=== PATIENT | female | born 1945 | race Caucasian/White ===

== ENCOUNTER 2021-03-17 20:54 | Emergency (ER) | payer MEDICARE, SELFPAY ==
--- NOTE | 2021-03-17 21:14 | ED.WOUNDLAC ---
HPI - Wound/Laceration General Stated Complaint: bleeding from leg Time Seen by Provider: 03/17/21 21:14 Source: patient Mode of arrival: ambulatory Limitations: no limitations History of Present Illness HPI narrative: 75-year-old woman comes in today complaining of a bleeding wound on her left anterior thigh that started approximately an hour ago. Patient states that she scratched herself with her fingernail and instigated the bleeding. She called EMS who came and bandaged it. She was worried that they would stop bleeding. She denies bleeding gums, bruising, nosebleeds, or prior similar bleeding. She takes an 81 mg aspirin a day and no other anticoagulants. Onset (ago): hour(s) (1) Extremity Location: Left: thigh Place: home Context: accidental Associated symptoms: none Treatments prior to arrival: bandage Review of Systems Review of Systems: All systems reviewed & are unremarkable except as noted in HPI and below Constitutional: Constitutional: Denies chills and Denies fever(s) Cardiovascular: Cardiovascular: Denies chest pain and Denies radiating jaw, neck or arm pain Respiratory: Respiratory: Denies cough, Denies dyspnea and Denies wheezing Gastrointestinal: Gastrointestinal: Denies abdominal pain, Denies diarrhea, Denies nausea and Denies vomiting Genitourinary: Genitourinary: Denies nocturia and Denies dysuria Musculoskeletal: Musculoskeletal: Denies back pain, Denies arthralgias and Denies joint swelling Integumentary/Breasts: Skin/Breast: Denies pruritus, Denies erythema and Denies rash Hematologic/Lymphatic: Hematologic/Lymphatic: Denies easy bleeding and Denies easy bruising Allergic/Immunologic: Allergic/Immunologic: Denies lip swelling and Denies throat swelling PMFSH Past Medical History Medical History (Updated 03/17/21 @ 21:33 by Junito Fields MD) Hyperlipidemia Hypertension Hypothyroidism Type 2 diabetes mellitus Surgical History Surgical History (Updated 03/17/21 @ 21:27 by Junito Fields MD) History of appendectomy Social History Social History (Updated 03/17/21 @ 21:27 by Junito Fields MD) Smoking status: Never smoker Alcohol intake: never Substance use: never Living arrangements: with family Exam Const: General: no acute distress and alert Orientation/consciousness: patient oriented x3 Eyes: Conjunctivae: conjunctivae normal Pupils: Equal, round and reactive pupils present EOM: EOMs intact bilaterally Resp: Effort & Inspection: normal respiratory effort and not labored Auscultation: clear to auscultation bilaterally, no rales, no rhonchi and no wheezes Cardio: Rate: regular rate Rhythm: regular rhythm Heart sounds: no murmurs Skin: General skin exam: normal color, no jaundice and no pallor Rashes: no rashes Other: varicose veins on the bilateral lower extremities. Small wound on the left anterior mid thigh with no bleeding. Neuro: General: patient oriented x3, moves all extremities, no focal motor deficits and CN's II-XI intact bilaterally Speech: normal speech Gait exam (Neuro): Normal gait present Extrem: General: normal to inspection and no clubbing, cyanosis or edema Psych: Appearance: grossly normal and well kempt Mental Status: mental status grossly normal Affect: normal affect Attitude: cooperative Thought content: Yes Normal thought content present Discharge Plan Discharge Clinical Impression: Abrasion Varicose veins of both lower extremities Qualifiers: Varicose vein complication: asymptomatic Qualified Code(s): I83.93 - Asymptomatic varicose veins of bilateral lower extremities Patient Disposition: Home, Self-Care Condition: Stable Instructions: Abrasion (ED) Additional Instructions: Redress the wound at least twice a day. If the wound begins to bleed again, applied direct pressure with clean gauze for 30-45 minutes. If it continues to bleed after, return to the emergency department. Keep a snug dressing on
[2021-03-17 21:31] VITALS: BP 190/87; PULSE 75; RESP 18; TEMP 37.1; O2SAT 100
[2021-03-17 22:05] VITALS: BP 184/88; PULSE 88; RESP 18; TEMP 36.7; O2SAT 98
== END 2021-03-17 22:13 | disposition home or self-care (01) ==
PROVIDERS: Emergency Provider Emergency Medicine; PCP Hospitalist
DX: I83.93 Asymptomatic varicose veins of bilateral lower extremities (principal); E78.5 Hyperlipidemia, unspecified; I10 Essential (primary) hypertension; E03.9 Hypothyroidism, unspecified; E11.9 Type 2 diabetes mellitus without complications
CPT/HCPCS: 99282

== ENCOUNTER 2022-03-06 09:35 | Outpatient (CLI) | payer MEDICARE, SELFPAY ==
[2022-03-06 10:25] LABS: Hemoglobin A1C 8.4 % (<5.7)
[2022-03-06 10:39] LABS: Alanine Aminotransferase 17 U/L (14-59); Alkaline Phosphatase 60 U/L (46-116); Anion Gap 9 mmol/L (8-16); Aspartate Amino Transferase 15 U/L (15-37); Bilirubin,Total 0.6 mg/dL (0.00-1.00); Blood Urea Nitrogen 28 mg/dL (7-18); Calcium 9.6 mg/dL (8.5-10.1); Carbon Dioxide 27 mmol/L (21-32); Chloride 104 mmol/L (98-108); Cholesterol 147 mg/dL (0-200); Estimated Glomerular Filt Rate 45; Glucose 170 mg/dL (70-99); HDL Direct 62 mg/dL (40-60); LDL Cholesterol Calculated 64 mg/dL (<130); Osmolality Calculated 299 mOsm/kg (285-295); Potassium 4.8 mmol/L (3.5-5.1); Sodium 140 mmol/L (136-145); Total Protein 7.5 g/dL (6.4-8.2); Triglycerides 105 mg/dL (0-150)
[2022-03-06 14:42] LABS: Thyroid Stimulating Hormone 2.26 uIU/mL (0.36-3.74)
[2022-03-10 13:33] LABS: Vitamin D 25 Hydroxy 34 ng/mL (30-100)
== END 2022-03-06 09:36 | disposition home or self-care (01) ==
LOC: CHSLAB 09:38
PROVIDERS: PCP Hospitalist
DX: E78.00 Pure hypercholesterolemia, unspecified (principal); I10 Essential (primary) hypertension; E11.9 Type 2 diabetes mellitus without complications; E55.9 Vitamin D deficiency, unspecified; E03.9 Hypothyroidism, unspecified
CPT/HCPCS: 36415; 80053; 80061; 82306; 83036; 84443

== ENCOUNTER 2022-08-28 09:46 | Outpatient (CLI) | payer MEDICARE, SELFPAY ==
[2022-08-28 10:14] LABS: Hemoglobin A1C 7.9 % (<5.7)
[2022-08-28 10:26] LABS: Alanine Aminotransferase 19 U/L (14-59); Albumin Level 3.7 g/dL (3.4-5.0); Alkaline Phosphatase 59 U/L (46-116); Anion Gap 9 mmol/L (8-16); Aspartate Amino Transferase 14 U/L (15-37); Bilirubin,Total 0.6 mg/dL (0.00-1.00); Blood Urea Nitrogen 31 mg/dL (7-18); Calcium 9.2 mg/dL (8.5-10.1); Carbon Dioxide 26 mmol/L (21-32); Chloride 102 mmol/L (98-108); Cholesterol 161 mg/dL (0-200); Estimated Glomerular Filt Rate 48; Glucose 172 mg/dL (70-99); HDL Direct 55 mg/dL (40-60); LDL Cholesterol Calculated 85 mg/dL (<130); Osmolality Calculated 294 mOsm/kg (285-295); Potassium 4.4 mmol/L (3.5-5.1); Sodium 137 mmol/L (136-145); Triglycerides 107 mg/dL (0-150)
== END 2022-08-28 09:47 | disposition home or self-care (01) ==
LOC: CHSLAB 09:51
PROVIDERS: PCP Hospitalist
DX: I10 Essential (primary) hypertension (principal); E78.5 Hyperlipidemia, unspecified; E11.59 Type 2 diabetes mellitus with other circulatory complications; I15.2 Hypertension secondary to endocrine disorders; E78.00 Pure hypercholesterolemia, unspecified
CPT/HCPCS: 36415; 80053; 80061; 83036

== ENCOUNTER 2022-11-13 09:33 | Outpatient (CLI) | payer MEDICARE, SELFPAY ==
[2022-11-13 10:07] LABS: Creatinine Urine 94.69 mg/dL (40-278); MALB Creatinine Ratio 13.7 mg/g (0-30); Microalbumin Urine Random < 13.0 mg/L
[2022-11-13 10:32] LABS: Alanine Aminotransferase 10 U/L (14-59); Albumin Level 3.6 g/dL (3.4-5.0); Alkaline Phosphatase 70 U/L (46-116); Anion Gap 8 mmol/L (8-16); Aspartate Amino Transferase 13 U/L (15-37); Bilirubin,Total 0.5 mg/dL (0.00-1.00); Blood Urea Nitrogen 31 mg/dL (7-18); Calcium 9.2 mg/dL (8.5-10.1); Carbon Dioxide 30 mmol/L (21-32); Chloride 100 mmol/L (98-108); Estimated Glomerular Filt Rate 36; Glucose 393 mg/dL (70-99); Osmolality Calculated 308 mOsm/kg (285-295); Potassium 4.8 mmol/L (3.5-5.1); Sodium 138 mmol/L (136-145); Total Protein 6.9 g/dL (6.4-8.2)
== END 2022-11-13 09:34 | disposition home or self-care (01) ==
LOC: CHSLAB 09:36
PROVIDERS: PCP Hospitalist; Visit Provider Internal Medicine Endocrinology, Diabetes & Metabolism
DX: E10.65 Type 1 diabetes mellitus with hyperglycemia (principal)
CPT/HCPCS: 36415; 80053; 82043

== ENCOUNTER 2022-12-04 09:57 | Outpatient (CLI) | payer MEDICARE, SELFPAY ==
[2022-12-04 10:43] LABS: Anion Gap 7 mmol/L (8-16); Blood Urea Nitrogen 27 mg/dL (7-18); Calcium 9.6 mg/dL (8.5-10.1); Carbon Dioxide 28 mmol/L (21-32); Chloride 103 mmol/L (98-108); Estimated Glomerular Filt Rate 50; Glucose 143 mg/dL (70-99); Osmolality Calculated 293 mOsm/kg (285-295); Potassium 4.7 mmol/L (3.5-5.1); Sodium 138 mmol/L (136-145)
== END 2022-12-04 09:58 | disposition home or self-care (01) ==
LOC: CHSLAB 10:01
PROVIDERS: PCP Hospitalist; Visit Provider Internal Medicine Endocrinology, Diabetes & Metabolism
DX: E10.65 Type 1 diabetes mellitus with hyperglycemia (principal)
CPT/HCPCS: 36415; 80048

== ENCOUNTER 2023-03-06 09:49 | Outpatient (CLI) | payer MEDICARE, SELFPAY ==
[2023-03-06 10:41] LABS: Alanine Aminotransferase 19 U/L (14-59); Alkaline Phosphatase 59 U/L (46-116); Anion Gap 5 mmol/L (8-16); Aspartate Amino Transferase 15 U/L (15-37); Bilirubin,Total 0.7 mg/dL (0.00-1.00); Blood Urea Nitrogen 30 mg/dL (7-18); Calcium 9.2 mg/dL (8.5-10.1); Carbon Dioxide 32 mmol/L (21-32); Chloride 98 mmol/L (98-108); Cholesterol 163 mg/dL (0-200); Estimated Glomerular Filt Rate 45; Glucose 182 mg/dL (70-99); HDL Direct 64 mg/dL (40-60); LDL Cholesterol Calculated 83 mg/dL (<130); Osmolality Calculated 291 mOsm/kg (285-295); Potassium 4.1 mmol/L (3.5-5.1); Sodium 135 mmol/L (136-145); Total Protein 7.4 g/dL (6.4-8.2); Triglycerides 82 mg/dL (0-150)
== END 2023-03-06 09:50 | disposition home or self-care (01) ==
LOC: CHSLAB 09:53
PROVIDERS: PCP Hospitalist
DX: E78.00 Pure hypercholesterolemia, unspecified (principal); I10 Essential (primary) hypertension
CPT/HCPCS: 36415; 80053; 80061

== ENCOUNTER 2023-04-23 09:40 | Outpatient (CLI) | payer MEDICARE, SELFPAY ==
[2023-04-23 10:40] LABS: Thyroid Stimulating Hormone 2.39 uIU/mL (0.36-3.74)
[2023-04-25 11:38] LABS: Vitamin D 25 Hydroxy 32 ng/mL (30-100)
== END 2023-04-23 09:41 | disposition home or self-care (01) ==
LOC: CHSLAB 09:42
PROVIDERS: PCP Hospitalist; Visit Provider Hospitalist
DX: E03.9 Hypothyroidism, unspecified (principal); E55.9 Vitamin D deficiency, unspecified
CPT/HCPCS: 36415; 82306; 84443

== ENCOUNTER 2023-11-01 09:58 | Outpatient (CLI) | payer MEDICARE, SELFPAY ==
[2023-11-01 10:16] LABS: Basophils Absolute Auto 0.07 K/mm3 (0.00-0.10); Basophils Percent Auto 1.2 % (0.0-1.0); Eosinophils Absolute Auto 0.39 K/mm3 (0.02-0.50); Eosinophils Percent Auto 6.6 % (1.0-6.0); Hematocrit 40.1 % (35.0-42.0); Hemoglobin 13.5 g/dL (11.7-13.8); Immature Granulocyte Absolute 0.02 K/mm3 (0.00-0.00); Immature Granulocyte Percent A 0.3 % (0.0-0.0); Lymphocytes Absolute Auto 1.99 K/mm3 (1.10-4.50); Lymphocytes Percent Auto 33.8 % (18.0-42.0); Mean Corpuscular HGB Conc 33.7 g/dL (32-36); Mean Corpuscular Volume 92.2 fL (78.0-102.0); Mean Platelet Volume 9.9 fl (9.2-11.8); Monocytes Absolute Auto 0.65 K/mm3 (0.10-0.90); Neutrophils Absolute Auto 2.77 K/mm3 (1.70-7.20); Neutrophils Percent Auto 47.1 % (50.0-70.0); Platelet Count Result 276 K/mm3 (150-420); Red Blood Count 4.35 M/mm3 (4.20-5.40); Red Cell Distribution Width 12.8 % (11.6-14.4); White Blood Count 5.9 K/mm3 (4.8-10.8)
[2023-11-01 10:57] LABS: Alanine Aminotransferase 20 U/L (14-59); Albumin Level 4.1 g/dL (3.4-5.0); Alkaline Phosphatase 59 U/L (46-116); Anion Gap 10 mmol/L (4-12); Aspartate Amino Transferase 16 U/L (15-37); Bilirubin,Total 0.6 mg/dL (0.00-1.00); Blood Urea Nitrogen 24 mg/dL (7-18); Calcium 9.7 mg/dL (8.5-10.1); Carbon Dioxide 30 mmol/L (21-32); Chloride 99 mmol/L (98-108); Cholesterol 149 mg/dL (0-200); Estimated Glomerular Filt Rate 48; Glucose 219 mg/dL (70-99); HDL Direct 60 mg/dL (40-60); LDL Cholesterol Calculated 65 mg/dL (<130); Osmolality Calculated 299 mOsm/kg (285-295); Potassium 4.6 mmol/L (3.5-5.1); Sodium 139 mmol/L (136-145); Total Protein 7.3 g/dL (6.4-8.2); Triglycerides 122 mg/dL (0-150)
== END 2023-11-01 09:59 | disposition home or self-care (01) ==
PROVIDERS: PCP Hospitalist; Visit Provider Hospitalist
DX: E10.69 Type 1 diabetes mellitus with other specified complication (principal); E78.2 Mixed hyperlipidemia; I51.2 Rupture of papillary muscle, not elsewhere classified; E10.59 Type 1 diabetes mellitus with other circulatory complications
CPT/HCPCS: 36415; 80053; 80061; 85025

== ENCOUNTER 2023-11-28 10:06 | Outpatient (CLI) | payer MEDICARE, SELFPAY ==
[2023-11-28 10:27] LABS: Creatinine Urine 95.73 mg/dL (40-278); MALB Creatinine Ratio 79.1 mg/g (0-30); Microalbumin Urine Random 75.8 mg/L
== END 2023-11-28 10:07 | disposition home or self-care (01) ==
LOC: CHSLAB 10:08
PROVIDERS: PCP Hospitalist; Visit Provider Nurse Practitioner Family
DX: E10.65 Type 1 diabetes mellitus with hyperglycemia (principal)
CPT/HCPCS: 82043

== ENCOUNTER 2024-06-10 10:50 | Outpatient (CLI) | payer MEDICARE, SELFPAY ==
[2024-06-10 11:07] LABS: Basophils Percent Auto 1.1 % (0.0-1.0); Eosinophils Percent Auto 4.2 % (1.0-6.0); Hematocrit 41.4 % (35.0-42.0); Hemoglobin 13.6 g/dL (11.7-13.8); Immature Granulocyte Absolute 0.02 K/mm3 (0.00-0.00); Immature Granulocyte Percent A 0.2 % (0.0-0.0); Lymphocytes Percent Auto 25.5 % (18.0-42.0); Mean Corpuscular HGB Conc 32.9 g/dL (32-36); Mean Corpuscular Hemoglobin 31.3 pg (27.0-31.0); Mean Corpuscular Volume 95.2 fL (78.0-102.0); Mean Platelet Volume 9.3 fl (9.2-11.8); Monocytes Percent Auto 9.6 % (2.0-11.0); Neutrophils Percent Auto 59.4 % (50.0-70.0); Platelet Count Result 310 K/mm3 (150-420); Red Blood Count 4.35 M/mm3 (4.20-5.40); White Blood Count 9.4 K/mm3 (4.8-10.8)
[2024-06-10 11:38] LABS: Alanine Aminotransferase 8 U/L (14-59); Albumin Level 4.1 g/dL (3.4-5.0); Alkaline Phosphatase 71 U/L (46-116); Anion Gap 9 mmol/L (4-12); Aspartate Amino Transferase 14 U/L (15-37); Bilirubin,Total 0.5 mg/dL (0.00-1.00); Blood Urea Nitrogen 32 mg/dL (7-18); Calcium 9.8 mg/dL (8.5-10.1); Carbon Dioxide 30 mmol/L (21-32); Chloride 102 mmol/L (98-108); Estimated Glomerular Filt Rate 43; Glucose 114 mg/dL (70-99); Osmolality Calculated 299 mOsm/kg (285-295); Potassium 4.2 mmol/L (3.5-5.1); Sodium 141 mmol/L (136-145); Total Protein 7.5 g/dL (6.4-8.2)
[2024-06-10 11:54] LABS: Thyroid Stimulating Hormone Reflex 2.06 u/IU/mL (0.36-3.74)
--- OUTSIDE RECORDS SUMMARY | 2024-06-10 12:30 | XMS_ITS | Clinical Summary ---
Author Organization [facility] Care Team Providers Care Machine Stripper Name Role Phone María Gusman MD Primary Care Pro vider Allergies No known active allergies Medications cholecalciferol (VITAMIN D-3) 25 mcg (1,000 unit) tablet Take 1 tablet (1,000 Units total) by mouth daily Active aspirin 81 mg enteric coated tablet Take 1 tablet (81 mg total) by mouth daily Active blood-glucose transmitter (Dexcom G6 Transmitter) deviceIndications: Type 1 diabetes mellitus with other specified complication (HCC) Use to check blood sugar continuously 1 Device 1 08/31/19 21 Active glucagon (Baqsimi) 3 mg/actuation spray,non-aerosol Administer 1 spray into one nostril as needed (for hypoglycemia) 2 each 3 11/08/19 22 Active triamcinolone (KENALOG) 0.1 % ointmentIndication s:Dermatitis Apply topically 2 (two) times a day as needed for irritation or rash Do not use daily for longer than 2 weeks 15 g 09/05/19 23 Active Dexcom G7 Animal Husbandry Technician miscIndications:Ty pe 1 diabetes mellitus with hyperglycemia (HCC) USE TO CHECK BG DIRECTED 1 each 11/10/19 23 Active insulin NPH (HumuLIN N) 100 unit/mL vial for injectionIndicatio ns:Type 1 diabetes mellitus with other specified complication (HCC) TAKE 20 UNITS IN THE MORNING AND 8 UNITS IN THE EVENING 45 mL 3 12/30/19 24 Active hydroCHLOROthiazid e (HYDRODIURIL) 25 mg tabletIndications: Hypertension associated with diabetes (HCC) TAKE 1 TABLET BY MOUTH DAILY 100 tablet 2 01/06/20 24 Active Dexcom G7 Sensor deviceIndications: Type 1 diabetes mellitus with hyperglycemia (HCC) Change sensor every 10 days 9 each 3 01/09/20 24 Active levothyroxine (SYNTHROID) 75 mcg tablet TAKE 1 TABLET BY MOUTH DAILY 100 tablet 01/14/20 24 Active carvediloL (COREG) 12.5 mg tablet TAKE 1 TABLET BY MOUTH TWICE DAILY 200 tablet 2 02/04/20 24 Active lisinopriL (PRINIVIL,ZESTRIL) 20 mg tablet TAKE 1 TABLET BY MOUTH TWICE DAILY 200 tablet 2 02/04/20 24 Active amLODIPine (NORVASC) 10 mg tablet TAKE 1 TABLET BY MOUTH DAILY 100 tablet 2 02/19/20 24 Active insulin regular (HumuLIN R) 100 unit/mL vial for injectionIndicatio ns:Type 1 diabetes mellitus with other specified complication (HCC) Inject 4-10 Units under the skin 2 (two) times a day before breakfast and dinner INJECT SUBCUTANEOUSLY 10 UNITS WITH BREAKFAST AND 4 UNITS WITH DINNER 20 mL 3 04/08/19 25 026 Active atorvastatin (LIPITOR) 10 mg tabletIndications: 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 A1c uncontrolled but stable at 8.0%. reviewed Dexcom download w/Verónica at time of appt; will make below changes: -increase evening NPH from 8 to 10 units. Please pay attention to blood sugars; may need to cut back on the NPH if going too low. -increase morning humulin Regular from 10 to 12 units Current medications: NPH 20 units with breakfast, 10 units with dinner Humulin R 12 units with breakfast, 4 units with dinner For sugars less than 120 at bedtime: have snack UTD on DM eye exam (11/21/23 +background retinlpathy Sharon Medel). UTD on labs. Discussed with Valentina I Gille: Strive for regular exercise (30min most days) and diet (get at least 4-5 servings of fruit and veggies daily, avoid processed foods, increase lean protein intake and decrease carb portions as well as fruit juices, regular soda & desserts). Watch carbs and simple sugars. Check the blood sugar: Dexcom. Check the feet daily for skin breakdown and infection. Assessment & Plan (11/20/2023 2:14 PM CDT): Chronic problem. A1c uncontrolled. Saida from 7.3% 08/22/23 to now 8.0%. -increase morning NPH back to 20 units. Please pay attention to blood sugars; may need to cut back on the NPH if going too low. Current medications: NPH 20 units with breakfast, 8 units with dinner Humulin R 10 units with breakfast, 4 units with dinner For sugars less than 120 at bedtime: have snack UTD on DM eye exam 01/14/23. Seen q6 mos; letter sent to get copy of spring 2023 eye exam. Will update MA/Cr today.Verified that she uses [facility]. Aware to check results/results letter in [facility]. Will contact by phone if needed. Discussed with Valentina Cordoba: Strive for regular exercise (30min most days) and diet (get at least 4-5 servings of fruit and veggies daily, avoid processed foods, increase lean protein intake and decrease carb portions as well as fruit juices, regular soda & desserts). Watch carbs and simple sugars. Check the blood sugar: Dexcom. Check the feet daily for skin breakdown and infection. Assessment & Plan (08/22/2023 2:51 PM CDT): Chronic, with hypo and hyperglycemia Insulin regimen adjusted : In the morning, before breakfast : NPH insulin , 15 Regular insulin, 8 units Before dinner : NPH, 10 units Regular insulin 4 units Assessment & Plan (03/21/2023 3:56 PM PLASTIC BLOCK BOILER RELINER): Hba1c was Lab Results Component Value Date HGBA1C 8.0 03/21/2023 today, indicating inadequate DM control Goal Hba1c under 7 and blood glucose level in the 120-160 range was explained Low carb diet and daily aerobic and /or resistant exercise were advised Prevention and treatment of hyypoglcyemia were discussed with the patient Blood glucose monitoring : start CGM with DEXCOM We provided the patient with the Dexcom G7 reader and placed the 1st sensor. Prescription will be sent Adjustment to medications: Continue current regimen with insulin N and R Assessment & Plan (11/08/2022 1:50 PM CDT): Hba1c was Lab Results Component Value Date HGBA1C 7.4 11/08/2022 today, indicating adequate DM control with hypoglycemia Goal Hba1c and blood glucose explained Diet and exercise were advised Prevention and treatment of hyypoglcyemia were discussed with the patient Blood glucose monitoring : will start CGM with FSL Adjustment to medications: Adjust insulin as follows : In the morning, before breakfast: NPH insulin , 20 Regular insulin, 5 units Before dinner : NPH, 10 units Regular insulin 4 units For sugars under 120 at bedtime, have a bedtime snack Assessment & Plan (03/06/2022 1:03 PM PLASTIC BLOCK BOILER RELINER): Lab Results Component Value Date HGBA1C 8.2 02/08/2022 Following with endocrine, reviewed note Continue current insulin dosing Assessment & Plan (02/08/2022 2:21 PM PLASTIC BLOCK BOILER RELINER): Hba1c was Lab Results Component Value Date HGBA1C 8.2 02/08/2022 today, indicating suboptimal DM control Goal Hba1c and blood glucose explained Diet and exercise were advised Prevention and treatment of hyypoglcyemia were discussed with the patient Blood glucose monitoring : ac ( pt not interested in CGM ) Adjustment to medications: Continue current regimen with N and R insulin Assessment & Plan (11/21/2021 1:34 PM CDT): Lab Results Component Value Date HGBA1C 8.5 11/07/2021 Following with endocrine, reviewed note Continue 25nph & 5 units regular in AM & 15 nph & 5 regular in PM, with 7 units of regular if blood sugar>200 Assessment & Plan (11/07/2021 4:30 PM CDT): Hba1c was Lab Results Component Value Date HGBA1C 8.5 11/07/2021 today, indicating inadequate DM control Goal Hba1c and blood glucose explained Diet and exercise were advised Prevention and treatment of hyypoglcyemia were discussed with the patient Blood glucose monitoring : will start CGM with [employer]. Prescription was sent Adjustment to medications: NPH insulin , 25 units and Regular insulin, 5 units in the morning, before breakfast For sugars over 200, take 7 units of Regular insulin NPH, 15 units and Regular insulin, 5 units before dinner For sugars over 200, take 7 units of regular insulin If your sugars at bedtime, are under 120, have a bedtime snack. Patient is very reluctant to any changes and the kind of insulin or the doses Encounter for annual wellnes s visit (AWV) in Medicare patient 02/03/2020 Assessment & Plan (03/12/2024 11:24 AM PLASTIC BLOCK BOILER RELINER): Reviewed PM & PHQ Screening PHQ-2 Total Score (If total score is 3 or more points, staff should administer the PHQ-9): 1 Hearing/vision screening reviewed, referrals placed as needed Fall risk reviewed Reviewed medications and supplements Specialists: cardiology, endocrine no evidence of cognitive impairment HCM: orders placed as needed Assessment & Plan (09/12/2023 2:09 PM CDT): Reviewed PMH & Reviewed medications and supplements HCM: orders placed as needed Assessment & Plan (03/07/2023 1:13 PM PLASTIC BLOCK BOILER RELINER): Reviewed [facility] & PHQ Screening PHQ-2 Total Score (If total score is 3 or more points, staff should administer the PHQ-9): 0 Hearing/vision screening reviewed, referrals placed as needed Fall risk reviewed Reviewed medications and supplements Specialists: cardiology, endocrine no evidence of cognitive impairment HCM: orders placed as needed Assessment & Plan (09/04/2022 1:20 PM CDT): Reviewed PM & Reviewed medications and supplements HCM: orders placed as needed Assessment & Plan (03/06/2022 1:05 PM PLASTIC BLOCK BOILER RELINER): Reviewed [facility] & PHQ Screening PHQ-2 Total Score (If total score is 3 or more points, staff should administer the PHQ-9): 0 PHQ-9 Total Score: 0 Hearing/vision screening reviewed, referrals placed as needed Fall risk reviewed Reviewed medications and supplements Specialists: cardiology, endocrine no evidence of cognitive impairment HCM: orders placed as needed Assessment & Plan (02/20/2021 9:22 AM PLASTIC BLOCK BOILER RELINER): Reviewed PMH & PHQ Screening PHQ-2 Total Score (If total score is 3 or more points, staff should administer the PHQ-9): 0 Hearing/vision screening reviewed, referrals placed as needed Fall risk reviewed Reviewed medications and supplements Specialists: cardiology no evidence of cognitive impairment HCM: orders placed as needed Assessment & Plan (02/03/2020 11:12 AM PLASTIC BLOCK BOILER RELINER): Former smoker <20 pack year history, quit >25y ago PAP: no longer indicated Mammo UTD 09/2019 Dexa ordered Cologuard UTD 11/2018 BP : see below PHQ Screening PHQ-2 Total Score (If total score is 3 or more points, staff should administer the PHQ-9): 0 PHQ-9 Total Score: 0 Body mass index is 30.34 kg/m . Discussed diet and exercise Due for hep C screening: previously negative Flu UTD PCV 23 today Tdap and shingrex at pharmacy Hypertension associated with type 1 diabetes ariana litus Assessment & Plan (03/12/2024 11:58 AM PLASTIC BLOCK BOILER RELINER): Continue 20mg lisinopril twice a day, 25mg hydrochlorothiazide, 10mg amlodipine, 12.5mg coreg & 5mg terazosin Assessment & Plan (03/02/2024 11:36 AM PLASTIC BLOCK BOILER RELINER): Chronic problem. Controlled on current carvedilol 12.5mg bid, lisinopril 20mg daily, amlodipine 10mg daily, HCTZ 25mg daily Assessment & Plan (11/20/2023 1:49 PM CDT): Chronic problem. Controlled on current carvedilol 12.5mg bid, lisinopril 20mg daily, amlodipine 10mg daily, HCTZ 25mg daily Assessment & Plan (09/12/2023 2:09 PM CDT): BP controlled Continue 20mg lisinopril twice a day, 25mg hydrochlorothiazide, 10mg amlodipine, 12.5mg coreg & 2mg terazosin Assessment & Plan (03/07/2023 1:16 PM PLASTIC BLOCK BOILER RELINER): BP controlled Continue 20mg lisinopril twice a day, 25mg hydrochlorothiazide, 10mg amlodipine, 12.5mg coreg & 2mg terazosin Assessment & Plan (09/04/2022 1:19 PM CDT): BP at goal Continue 20mg lisinopril twice a day, 25mg hydrochlorothiazide, 10mg amlodipine, 12.5mg coreg & 2mg terazosin Assessment & Plan (03/06/2022 1:04 PM PLASTIC BLOCK BOILER RELINER): BP at goal Continue 20mg lisinopril twice a day, 25mg hydrochlorothiazide, 10mg amlodipine and 50mg metoprolol XL Assessment & Plan (11/21/2021 1:31 PM CDT): BP at goal Continue 20mg lisinopril twice a day, 25mg hydrochlorothiazide, 10mg amlodipine and 50mg metoprolol XL Assessment & Plan (08/21/2021 9:49 AM CDT): BP at goal Continue 20mg lisinopril twice a day, 25mg hydrochlorothiazide, 10mg amlodipine and 50mg metoprolol XL Assessment & Plan (05/23/2021 9:22 AM PLASTIC BLOCK BOILER RELINER): BP at goal Continue 20mg lisinopril twice a day, 25mg hydrochlorothiazide, 10mg amlodipine and 50mg metoprolol XL Assessment & Plan (02/20/2021 9:23 AM PLASTIC BLOCK BOILER RELINER): BP at goal Continue 20mg lisinopril twice a day, 25mg hydrochlorothiazide, 10mg amlodipine and 50mg metoprolol XL Assessment & Plan (12/01/2020 12:56 PM CDT): BP at goal Continue 20mg lisinopril twice a day, 25mg hydrochlorothiazide, 10mg amlodipine and 50mg metoprolol XL Assessment & Plan (08/01/2020 12:38 PM CDT): BP at goal Reviewed labs and cardiology notes Continue 20mg lisinopril twice a day, 25mg hydrochlorothiazide, 10mg amlodipine and 50mg metoprolol XL Assessment & Plan (07/04/2020 10:40 AM CDT): BP at goal On 20mg lisinopril twice a day, 25mg hydrochlorothiazide, 10mg amlodipine and 50mg metoprolol XL Assessment & Plan (05/19/2020 10:45 AM PLASTIC BLOCK BOILER RELINER): BP at goal On 20mg lisinopril twice a day, 25mg hydrochlorothiazide, 10mg amlodipine and 50mg metoprolol XL Assessment & Plan (02/03/2020 11:03 AM PLASTIC BLOCK BOILER RELINER): BP initially above goal On 20mg lisinopril, 25mg hydrochlorothiazide, 10mg amlodipine and 50mg metoprolol XL Patient has follow up with cardiology later today Assessment & Plan (01/04/2020 11:25 AM CDT): BP initially 140/64, improved to 134/60 on repeat Continue 20mg lisinopril, 25mg hydrochlorothiazide, 10mg amlodipine and 50mg metoprolol XL Follow up 1 month, if remains elevated above goal will need to increase meds Assessment & Plan (12/04/2019 6:36 AM CDT): BP initially 176/80, improved to 140/74 on repeat Blood pressure improving 2 weeks after starting new medications, would give additional 2 weeks to note full benefit, may need to increase further if not to goal Continue 20mg lisinopril, 25mg hydrochlorothiazide, 5mg amlodipine and 25mg metoprolol Assessment & Plan (10/01/2019 11:23 AM CDT): BP 180/80 despite additional medications. Asymptomatic Home cuff 230/80 in office, home readings 148-170/60-70's. May be at goal at home, but unclear given cuff accuracy Referral to cardiology for ambulatory monitoring Continue medications Assessment & Plan (09/18/2019 11:07 AM CDT): BP 192/88 initially, 170/80 on repeat Increase hydrochlorothiazide to 25mg and follow up 2 weeks for recheck with cuff Assessment & Plan (09/04/2019 11:07 AM CDT): Uncontrolled BP 180/72 today, above goal Home BP ranges from 66-205/32-95 with wrist cuff Discussed wrist cuff less accurate and given persistently elevated blood pressure in clinic with some additionally significantly elevated pressures at home recommend adding additional agent, patient agreeable Assessment & Plan (08/21/2019 10:53 AM CDT): BP 160/89 today, above goal Continue 20mg lisinopril Type 1 diabetes mellitus with other specified co mplication Assessment & Plan (03/12/2024 11:24 AM PLASTIC BLOCK BOILER RELINER): Lab Results Component Value Date HGBA1C 8.0 03/02/2024 Following with endocrine Continue current insulin dosing Assessment & Plan (09/12/2023 2:09 PM CDT): Lab Results Component Value Date HGBA1C 7.3 08/22/2023 Following with endocrine Continue current insulin dosing Assessment & Plan (03/07/2023 1:14 PM PLASTIC BLOCK BOILER RELINER): Lab Results Component Value Date HGBA1C 7.4 11/08/2022 Following with endocrine Continue current insulin dosing Assessment & Plan (09/04/2022 1:08 PM CDT): a1c 7.9 Following with endocrine Continue current insulin dosing Assessment & Plan (08/21/2021 9:56 AM CDT): Lab Results Component Value Date HGBA1C 9.3 (H) 07/25/2021 Above goal, recommend referral to endocrine Continue 25nph & 3 units regular in AM & 14 nph & 6 regular in PM Assessment & Plan (05/23/2021 9:22 AM PLASTIC BLOCK BOILER RELINER): Check a1c Continue 25nph & 3 units regular in AM & 14 nph & 6 regular in PM Assessment & Plan (02/20/2021 9:33 AM PLASTIC BLOCK BOILER RELINER): Lab Results Component Value Date HGBA1C 6.9 (H) 01/26/2021 Continue 25nph & 3 units regular in AM & 14 nph & 6 regular in PM Ok to decrease testing frequency, but stressed importance of checking if having symptoms of hypoglycemia Assessment & Plan (12/01/2020 12:56 PM CDT): Uncontrolled Continue 24 nph, decrease regular to 4 units in AM & continue 14 nph & 7 regular in PM Assessment & Plan (08/01/2020 12:37 PM CDT): Home blood sugar at goal, although a1c still uncontrolled. Continue 25 nph & 15 regular in AM & 11 nph/11 regular in PM Check blood sugar 2 hours after breakfast and lunch and send me values Assessment & Plan (07/04/2020 11:02 AM CDT): DM Care Plan: Meds: Insulin: 25 units of NPH & 15 units of regular insulin before breakfast. 11 units of NPH & 11 units of regular insulin before dinner. Lisinopril - continue Statin - continue Eye Exam: yearly Foot Exam: 10/10 monofilament, 2+ pedal pulses 08/21/2019 BP: At goal, on ACEi. Continue meds Smoking - none Influenza - 12/30/2019 Pneumococcal - 13 02/03/2020, 23 due 01/2021 A1C - Hemoglobin A1c % (%) Date Value 12/17/2019 8.9 (H) Hemoglobin A1C, POC (no units) Date Value 05/19/2020 8.2 08/21/2019 6.8 Lipids: On statin, checked yearly Urine Microalbumin - on ACEi - no recheck Assessment & Plan (05/19/2020 1:04 PM PLASTIC BLOCK BOILER RELINER): A1c improved to 8.2, but still above goal. Given fasting blood sugar and 2h after dinner at goal advise patient to check 2 hours after breakfast, 2 hours after lunch and at bedtime and follow up via portal in 4 days so we can adjust medications. Working on getting continuous glucose monitor approved. DM Care Plan: Meds: Increase to 18 units AM & 16 units PM NPH and regular insulin Lisinopril - continue Statin - continue Eye Exam: yearly Foot Exam: 10/10 monofilament, 2+ pedal pulses 08/21/2019 BP: At goal, on ACEi. Continue meds Smoking - none Influenza - 12/30/2019 Pneumococcal - 13 02/03/2020, 23 due 01/2021 A1C - Hemoglobin A1c % (%) Date Value 12/17/2019 8.9 (H) Hemoglobin A1C, POC (no units) Date Value 08/21/2019 6.8 Lipids: On statin, checked yearly Urine Microalbumin - on ACEi - no recheck Assessment & Plan (02/03/2020 11:02 AM PLASTIC BLOCK BOILER RELINER): Uncontrolled. Now having borderline hypoglycemia at night. Decrease evening insulin dose. Will order CGM and place referral to dietitian. DM Care Plan: Meds: Continue 17 units AM & decrease to 16 units PM NPH and regular insulin Lisinopril - continue Statin - continue Eye Exam: yearly Foot Exam: 10/10 monofilament, 2+ pedal pulses 08/21/2019 BP: Above goal, see below, on ACEi. Continue meds Smoking - none Influenza - 12/30/2019 Pneumococcal - 13 today, 23 1 year A1C - Hemoglobin A1c % (%) Date Value 12/17/2019 8.9 (H) Hemoglobin A1C, POC (no units) Date Value 08/21/2019 6.8 Lipids: On statin, checked yearly Urine Microalbumin - on ACEi - no recheck Assessment & Plan (01/04/2020 11:26 AM CDT): Uncontrolled DM Care Plan: Meds: Increase to 17 units AM & 17 units PM NPH and regular insulin Lisinopril - continue Statin - continue Eye Exam: yearly, request records Foot Exam: 10/10 monofilament, 2+ pedal pulses 08/21/2019 BP: Above goal, see below, on ACEi. Continue meds Smoking - none Influenza - 12/30/2019 Pneumococcal - patient going to get at pharmacy A1C - Hemoglobin A1c % (%) Date Value 12/17/2019 8.9 (H) Hemoglobin A1C, POC (no units) Date Value 08/21/2019 6.8 Lipids: On statin, checked yearly Urine Microalbumin - on ACEi - no recheck Assessment & Plan (09/04/2019 11:06 AM CDT): Patient requesting refills of insulin, informed sent to pharmacy at last visit. Sugars at goal, continue current dosing Assessment & Plan (08/21/2019 1:02 PM CDT): DM Care Plan: Meds: Continue 15 units AM & 17 units PM NPH and regular insulin Lisinopril - continue Statin - continue Eye Exam: yearly, new referral placed Foot Exam: 10/10 monofilament, 2+ pedal pulses 08/21/2019 BP: Above goal, see below, on ACEi. Continue meds Smoking - none Influenza - this fall Pneumococcal - give at next visit A1C - Hemoglobin A1C, POC (no units) Date Value 08/21/2019 6.8 Lipids: On statin, checked yearly, per patient just checked, request records Urine Microalbumin - on ACEi - no recheck Acquired hypothyroidism Assessment & Plan (03/12/2024 11:26 AM PLASTIC BLOCK BOILER RELINER): TSH 2.Apr, controlled Continue 75mcg levothyroxine Assessment & Plan (03/02/2024 11:36 AM PLASTIC BLOCK BOILER RELINER): Chronic problem. Managed by PCP. Clinically & biochemically euthyroid at this time. Currently taking levothyroxine 75 mcg daily. Aware to take 1st thing in morning, 30-60 minutes before food/drink/other medications. Assessment & Plan (11/20/2023 1:50 PM CDT): Chronic problem. Managed by PCP. Clinically & biochemically euthyroid at this time. Currently taking levothyroxine 75 mcg daily. Aware to take 1st thing in morning, 30-60 minutes before food/drink/other medications. Assessment & Plan (09/12/2023 2:09 PM CDT): Lab Results Component Value Date TSH 0.40 02/22/2021 controlled Continue 75mcg levothyroxine Assessment & Plan (03/07/2023 1:17 PM PLASTIC BLOCK BOILER RELINER): tsh 2.26 03/06/22 Continue 75mcg levothyroxine Assessment & Plan (09/04/2022 1:09 PM CDT): tsh 2.26 03/06/22 Continue 75mcg levothyroxine Assessment & Plan (03/06/2022 1:04 PM PLASTIC BLOCK BOILER RELINER): Lab Results Component Value Date TSH 0.40 02/22/2021 Continue 75mcg levothyroxine Assessment & Plan (11/21/2021 1:31 PM CDT): Lab Results Component Value Date TSH 0.40 02/22/2021 Continue 75mcg levothyroxine Assessment & Plan (08/21/2021 9:56 AM CDT): Lab Results Component Value Date TSH 0.40 02/22/2021 Continue 75mcg levothyroxine Assessment & Plan (05/23/2021 9:24 AM PLASTIC BLOCK BOILER RELINER): Lab Results Component Value Date TSH 0.40 02/22/2021 Continue 75mcg levothyroxine Assessment & Plan (12/01/2020 1:58 PM CDT): Lab Results Component Value Date TSH 0.590 12/17/2019 Continue 75mcg levothyroxine Recheck tsh at next appt Assessment & Plan (07/04/2020 10:40 AM CDT): Lab Results Component Value Date TSH 0.590 12/17/2019 Continue 75mcg levothyroxine Assessment & Plan (05/19/2020 10:45 AM PLASTIC BLOCK BOILER RELINER): Lab Results Component Value Date TSH 0.590 12/17/2019 Continue 75mcg levothyroxine Assessment & Plan (02/03/2020 11:00 AM PLASTIC BLOCK BOILER RELINER): Lab Results Component Value Date TSH 0.590 12/17/2019 Continue 75mcg levothyroxine Assessment & Plan (01/04/2020 11:27 AM CDT): Lab Results Component Value Date TSH 0.590 12/17/2019 Continue 75mcg levothyroxine Assessment & Plan (09/18/2019 11:08 AM CDT): TSH within normal limits 05/2019, repeat yearly COntinue 75mcg levothyroxine Assessment & Plan (08/21/2019 12:59 PM CDT): Per patient recent TSH 3 months ago within normal limits, request records Continue 75mcg levothyroxine Vitamin D deficiency Assessment & Plan (03/12/2024 11:26 AM PLASTIC BLOCK BOILER RELINER): Continue supplementation Assessment & Plan (09/12/2023 2:09 PM CDT): Continue supplementation Assessment & Plan (09/04/2022 1:10 PM CDT): Continue supplementation Assessment & Plan (11/21/2021 1:31 PM CDT): Continue supplementation Assessment & Plan (12/01/2020 1:59 PM CDT): Continue supplementation Assessment & Plan (05/19/2020 10:45 AM PLASTIC BLOCK BOILER RELINER): On 1,000 international units daily Assessment & Plan (02/03/2020 11:00 AM PLASTIC BLOCK BOILER RELINER): Last level 70 Recommend decreasing supplementation to 1,000 international units daily Assessment & Plan (12/04/2019 6:31 AM CDT): On 50,000 international units weekly Recheck level with next labs Assessment & Plan (09/18/2019 11:07 AM CDT): Last level <30 in 05/2019 Patient notes not taking weekly, encouraged to find a way to remind herself Check with next diabetes mellitus labs Assessment & Plan (08/21/2019 1:06 PM CDT): Request records Repeat level with next labs Mixed diabetic hyperlipidemi a associated with type 1 diabetes mellitus Assessment & Plan (03/12/2024 11:25 AM PLASTIC BLOCK BOILER RELINER): Continue statin Assessment & Plan (03/02/2024 11:36 AM PLASTIC BLOCK BOILER RELINER): Chronic problem. Currently taking Atorvastatin 10mg. Last lipid panel: 11/01/23 LDL=65, MP=341. Assessment & Plan (11/20/2023 1:49 PM CDT): Chronic problem. Currently taking Atorvastatin 10mg. Last lipid panel: 03/06/23 LDL=83, TG=82. Assessment & Plan (09/12/2023 2:09 PM CDT): Continue statin Assessment & Plan (08/22/2023 2:52 PM CDT): Chronic, stable. Continue Atorvastatin Assessment & Plan (03/21/2023 3:54 PM PLASTIC BLOCK BOILER RELINER): Chronic, stable Continue statin therapy with atorvastatin 10 mg daily Assessment & Plan (03/07/2023 1:16 PM PLASTIC BLOCK BOILER RELINER): Continue statin Assessment & Plan (09/04/2022 1:08 PM CDT): Continue statin Assessment & Plan (03/06/2022 1:03 PM PLASTIC BLOCK BOILER RELINER): Continue statin Assessment & Plan (11/21/2021 1:31 PM CDT): Continue statin Assessment & Plan (08/21/2021 9:51 AM CDT): Continue 10mg atorvastatin Assessment & Plan (05/23/2021 9:22 AM PLASTIC BLOCK BOILER RELINER): Continue 10mg atorvastatin Assessment & Plan (02/20/2021 9:23 AM PLASTIC BLOCK BOILER RELINER): Continue 10mg atorvastatin Assessment & Plan (12/01/2020 1:59 PM CDT): Continue 10mg atorvastatin Assessment & Plan (08/01/2020 12:38 PM CDT): Reviewed labs and cardiology note Continue 10mg atorvastatin Assessment & Plan (07/04/2020 10:40 AM CDT): On 10mg atorvastatin Assessment & Plan (05/19/2020 10:45 AM PLASTIC BLOCK BOILER RELINER): On 10mg atorvastatin Lipids checked 12/17/19 Assessment & Plan (02/03/2020 11:00 AM PLASTIC BLOCK BOILER RELINER): On 10mg atorvastatin Lipids checked 12/16 Assessment & Plan (01/04/2020 6:54 AM CDT): On 10mg atorvastatin Lipids checked 12/16 Assessment & Plan (09/18/2019 11:08 AM CDT): Had lipids checked 05/2019 scanned into chart On 10mg atorvastatin Assessment & Plan (08/21/2019 1:06 PM CDT): On statin Resolved Problems Problem Noted Date Diagnosed Date Resolved Date Hypoglycemia due to type 1 diabetes mellitus 2 03/07/2023 Assessment & Plan (11/07/2021 4:31 PM CDT): Prevention and treatment of hypoglycemia were discussed Pt has glucagon emergency kit at home and family knows how to use it. New prescription for Baqsimi was also sent Class 1 obesity due to exces s calories with serious comorbidity and body mass index (BMI) of 32.0 to 32.9 in adult 08/21/2019 09/12/2023 Assessment & Plan (02/20/2021 9:23 AM PLASTIC BLOCK BOILER RELINER): BMI Follow-up includes: nutrition counseling. Assessment & Plan (02/03/2020 11:00 AM PLASTIC BLOCK BOILER RELINER): BMI Follow-up includes: nutrition counseling. Assessment & Plan (01/04/2020 6:53 AM CDT): BMI Follow-up includes: nutrition counseling and exercise counseling. Assessment & Plan (12/04/2019 6:29 AM CDT): BMI Follow-up includes: nutrition counseling and exercise counseling. Assessment & Plan (09/18/2019 3:35 PM CDT): BMI Follow-up includes: nutrition counseling. Assessment & Plan (08/21/2019 11:52 AM CDT): BMI Follow-up includes: nutrition counseling. Encounters Date Type Department Care Team Description 04/14/2024 Telephone [facility] Diabetes and Endocrinology [address] [place] [phone] Harmony Camarena, CANDY COOKER HELPER Reschedule 03/18/2024 Telephone [facility] Primary Care at [address] [phone] María Gusman MD Medical Question/Miscellaneous 03/12/2024 11:15 AM PLASTIC BLOCK BOILER RELINER Office Visit [facility] Primary Care at [address] [phone] María Gusman MD Encounter for annual wellness visit (AWV) in Medicare patient (Primary Dx); Encounter for screening for other viral diseases; 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, unspecified laterality (HCC); Hypertension associated with type 1 diabetes mellitus (HCC); 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); Acquired hypothyroidism; Vitamin D deficiency; Impacted cerumen of left ear from Last 3 Months Immunizations Immunization Administration Dates Next Due Influenza, Quad, Adjuvantate d, Intramuscular 01/21/2023 Influenza, Quadrivalent, Hig h Dose, Preservative Free, Intrr 12/20/2021,12/28/2020,12/30/2019 Influenza, Trivalent, High D ose, Split, Preservative Free, Intramuscular 01/02/2024 Influenza, Unspecified 01/08/2022,01/11/2021 Meningococcal ACWY, Unspecified 06/22/2020,05/25 Moderna SARS-CoV-2 Monovalen t Vaccination (12+ YRS) 01/29/2021 Pneumococcal Conjugate PCV 13 02/03/2020 Pneumococcal Conjugate Pcv20 02/27/2022 Pneumococcal Polysaccharide PPV23 03/15/2021 RSV, Bivalent, Protein Subun it Rsvpref, Diluent (Abrysvo) 01/24/2024 ZOSTER Recombinant 01/11/2021,08/30/2020 Surgical History Surgery Date Site/Laterality Comments APPENDECTOMY HYSTERECTOMY BREAST BIOPSY 04/01/1983 - 03/31/1984 Left benign surgical bx, no visible scar- pt think outer breast Medical History Medical History Date Comments Depression Hypertension Arthritis Thyroid disease Vitamin D deficiency Hyperlipidemia Diabetes mellitus (HCC) Family History Medical History Relation Name Comments Emphysema Father Breast cancer Mother [facility] Paternal Half-Sister Relation Name Status Comments Father Mother [facility] Paternal Half-Sister Social History Tobacco Use Types Packs/Day Years Used Date Smoking Tobacco: Former Cigarettes 0.4 34 0 04/01/1972 - 1992 Smokeless Tobacco: Never Tobacco Cessation:Counseling Given: Not Answered Alcohol Use Standard Drinks/Week Comments Not Currently 0 (1 standard drink = 0.6 oz pur e alcohol) AUDIT-C Answer Date Recorded Frequency of Alcohol Consumption Not on file 03/12/2024 Q2: How many drinks containi ng alcohol do you have on a typical day when you are drinking? Patient does not drink Frequency of Binge Drinking Not on file 03/01 PHQ-2 Answer Date Recorded PHQ-2 Total Score (If total score is 3 or more points, staff should administer the PHQ-9) 1 03/12/2024 Comments No Sex and Gender Information Value Date Recorded Sex Assigned at Not on file Legal Sex Female 10:49 AM CDT Gender Identity Female 12/27/2019 8:13 AM CDT Sexual Orientation Choose not to disclose 2019 8:13 AM CDT Obstetrics History Para Term AB IAB SAB Ectopic Multiple Livin g Live Births 0 0 0 0 0 0 0 0 0 0 0 Last Filed Vital Signs Vital Sign Reading Time Taken Comments Blood Pressure 136/82 03/12/2024 11:14 AM PLASTIC BLOCK BOILER RELINER Pulse 70 03/12/2024 11:14 AM PLASTIC BLOCK BOILER RELINER Temperature 36.6 C (97.8 F) 03/12/2024 11:14 AM PLASTIC BLOCK BOILER RELINER Respiratory Rate 18 03/12/2024 11:14 AM PLASTIC BLOCK BOILER RELINER Oxygen Saturation 98% 03/12/2024 11:14 AM PLASTIC BLOCK BOILER RELINER Inhaled Oxygen Concentration - - Weight 78.7 kg (173 lb 9.6 oz) 03/12/2024 11:14 AM PLASTIC BLOCK BOILER RELINER Height 167.6 cm (5' 6 ) 03/12/2024 11:14 AM PLASTIC BLOCK BOILER RELINER Body Mass Index 28.02 03/12/2024 11:14 AM PLASTIC BLOCK BOILER RELINER Plan of Treatment Health Maintenance Due Date Last Done Comments DTaP/Tdap/Td Vaccine (1 - Tdap) 1956 Hepatitis B Screening 06[birth year]02/1963 TSH Level 04/23/2024 04/23/2023, 01/31, 12/17/2019 Covid-19 Vaccine (2023-2 5 season) 2024 01/02/2024, 01/21/2023, 12/25/2021, Additional history exists Hemoglobin A1C 08/31/2024 03/02/2024, 10/31, 08/22/2023, Additional history exists Osteoporosis Screening-Bone Density Scan 10/30/2024 10/30/2022, 07/04/2020 Lipid Panel 10/31/2024 11/01/2023, 120 08/2022, 03/06/2023, Additional history exists eGFR 10/31/2024 11/01/2023, 09/0 07/2022, 11/13/2022, Additional history exists Dilated Eye Exam 11/20/2024 11/21/2023, , 01/08/2022, Additional history exists Albumin Creatinine Ratio, Urine 11/27/2024 11/28/2023, 11/13/2022, 05/24/2021 Foot Exam 03/02/2025 03/02/2024, 09/2022, 11/21/2021, Additional history exists Depression Screening 03/12/2025 03/12/2024, 03/21/2023, 03/07/2023, Additional history exists Fall Risk Assessment 03/12/2025 03/12/2024, 03/21/2023, 03/07/2023, Additional history exists Well Visit 65+ 03/12/2025 03/12/2024, 08/30, 03/07/2023, Additional history exists Colon Cancer Screening-DNA Stool Discontinued 01/15/20 19, 01/14/2019 Colon Cancer Screening-FIT Discontinued 01/14/2019, Colon Cancer Screening-FOBT Discontinued 01/14/2019, 1 Colorectal Cancer Screening Discontinued Hepatitis C Screening Completed 12/17/2019 Zoster Vaccine Completed 01/11/2021, 08/30/2020 Pneumococcal vaccine 65+ Completed 022, 03/15/2021, 02/03/2020 Breast Cancer Screening-Mammogram Discontinued 024, 10/16/2019 Influenza Vaccine Completed 01/02/2024, , 01/08/2022, Additional history exists Colon Cancer Screening-CT Colonography Discontinued Colon Cancer Screening-Colonoscopy Discontinued Colon Cancer Screening-Sigmoidoscopy Discontinued Procedures Procedure Name Priority Date/Time Associated Diagnosis Comments POCT HEMOGLOBIN A1C Routine 03/02/2024 11:27 AM PLASTIC BLOCK BOILER RELINER Type 1 diabetes mellitus with hyperglycemia (HCC) ALBUMIN CREATININE RATIO, URINE Routine 11/28/2023 10:13 AM CDT Type 1 diabetes mellitus with hyperglycemia (HCC) HM DIABETES EYE EXAM Routine 11/21/2023 7:59 AM CDT COMPREHENSIVE METABOLIC PANEL Routine 11/01/2023 10:11 AM CDT LIPID PANEL Routine 11/01/2023 10:11 AM CDT SCREENING MAMMOGRAM BILATERAL W SHANT Schedule Routine, Read Routine (OP Routine) 10/18/2023 10:40 AM CDT Screening mammogram, encounter for TSH Routine 04/23/2023 DEXA AXIAL SKELETON BONE DENSITY 1 OR MORE SITES Schedule Routine, Read Routine (OP Routine) 10/30/2022 1:38 PM CDT Post-menopausal HEPATITIS C ANTIBODY Routine 12/17/2019 8:52 AM CDT Need for hepatitis C screening test STOOL DNA COLOGUARD Routine 01/14/2019 from Last 3 Months or Most Recently Relevant to Health Maintenance Results * (ABNORMAL) POCT hemoglobin A1c (03/02/2024 11:27 AM PLASTIC BLOCK BOILER RELINER) Hemoglobin A1C, POC 8.0 4.0 - 5.6 % Blood 03/02/2024 11:2 7 AM PLASTIC BLOCK BOILER RELINER us Harmony Camarena NP POINT OF CARE TEST ORDERA BLES Final Result * (ABNORMAL) Albumin Creatinine Ratio, Urine (11/28/2023 10:13 AM CDT) SCRIBED Creatinine, Urine 95.73 40 - 278 EXTERNAL LAB SCRIBED Microalbumin 75.8 NA - NA EXTERNAL LAB SCRIBED Microalb/Creat Ratio 79.1(A) 0 - 30 EXTERNAL LAB Urine 11/28/2023 10:1 3 AM CDT us Harmony Camarena CANDY COOKER HELPER LAB URINE ORDERABLES Janneth l Result EXTERNAL LAB * (ABNORMAL) DIABETES EYE EXAM (11/21/2023 7:59 AM CDT) us Historical Provider HEALTH MAINTENANCE Final Result * (ABNORMAL) Lipid panel (11/01/2023 10:11 AM CDT) SCRIBED Cholesterol, Total 149 0 - 200 EXTERNAL LAB SCRIBED HDL 60 40 - 60 EXTERNAL LAB SCRIBED LDL 65 <130 - NA EXTERNAL LAB SCRIBED Triglycerides 122 0 - 150 EXTERNAL LAB Blood 11/01/2023 10:1 1 AM CDT Historical Provider LAB BLOOD ORDERABLES Edit ed Result - Final EXTERNAL LAB * (ABNORMAL) Comprehensive metabolic panel (11/01/2023 10:11 AM CDT) SCRIBED Sodium 139 136 - 145 mmol/L EXTERNAL LAB SCRIBED Potassium 4.6 3.5 - 5.1 mmol/L EXTERNAL LAB SCRIBED Chloride 99 98 - 108 mmol/L EXTERNAL LAB SCRIBED Carbon Dioxide 30 21 - 32 mmol/L EXTERNAL LAB SCRIBED Anion Gap 10 4 - 12 mmol/L EXTERNAL LAB SCRIBED Urea Nitrogen (BUN) 24(A) 7 - 18 mg/dl EXTERNAL LAB SCRIBED Creatinine 1.10(A) 0.55 - 1.02 mg/dl EXTERNAL LAB SCRIBED Glucose 219(A) 70 - 99 mg/dl EXTERNAL LAB SCRIBED Calcium 9.7 8.5 - 10.1 mg/dl EXTERNAL LAB SCRIBED Bilirubin 0.6 0.00 - 1.00 mg/dl EXTERNAL LAB SCRIBED Plasma Protein 7.3 6.4 - 8.2 g/dl EXTERNAL LAB SCRIBED Albumin 4.1 3.5 - 5.0 g/dl EXTERNAL LAB SCRIBED Alkaline Phosphatase 59 46 - 116 Units/L EXTERNAL LAB SCRIBED Alanine Transaminase (ALT) 20 14 - 59 Units/L EXTERNAL LAB SCRIBED Aspartate Transaminase (AST) 16 15 - 37 Units/L EXTERNAL LAB SCRIBED eGFR in NonAfrican Bulgarian 48 >=60 - NA EXTERNAL LAB Blood 11/01/2023 10:1 1 AM CDT Historical Provider LAB BLOOD ORDERABLES Edit ed Result - Final EXTERNAL LAB * Screening Mammogram Bilateral W Shant (10/18/2023 10:40 AM CDT) Anatomical Region Laterality Modality Breast Bilateral Mammography 10/18/2023 3:52 PM CDT Impressions 10/18/2023 3:52 PM CDT There is no mammographic evidence of malignancy. A 1 year screening mammogram is recommended. BI-RADS: 1 - Negative. The patient has been or will be contacted. The patient will be entered into a reminder system with a target due date of 1 year for her next mammogram. Electronically signed by: Ginna Ngo M.D. Narrative 10/18/2023 3:52 PM CDT EXAMINATION: SCREENING MAMMOGRAM BILATERAL W SHANT ORDERING HEALTHCARE PROVIDER: SELF SCREENING MAMMOGRAM HISTORY: Routine screening mammography. COMPARISON: 10/16/2019 TECHNIQUE: CC and MLO views of the bilateral breasts were obtained with digital technique using breast tomosynthesis with C view. Computer aided detection was utilized. FINDINGS: DENSITY: There are scattered fibroglandular elements in the bilateral breasts. BREASTS: There are no suspicious masses, suspicious calcifications, or other suspicious findings in either breast. There has been no suspicious interval change. us Self Screening Mammogram IMG MAMMO PROCEDURES Fi nal Result * TSH (04/23/2023) Scribed TSH 2.39 0.36 - 3.74 mcU/mL EXTERNAL LAB Blood Historical Provider MD LAB BLOOD ORDERABLES Janneth l Result EXTERNAL LAB * Dexa Axial Skeleton Bone Density 1 or 2 Site (10/30/2022 1:38 PM CDT) Anatomical Region Laterality Modality Body N/A Mammography 10/31/2022 8:31 AM CDT Narrative 10/31/2022 8:32 AM CDT EXAM DESCRIPTION: DEXA AXIAL SKELETON BONE DENSITY 1 OR MORE SITES REASON FOR STUDY: 77 y/o year old F with given history of: Postmenopausal status. Patient takes vitamin-D. 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 LEFT HIP: Total BMD is 0.852 g/cm2 T-score is -0.7 This is an 8.5% decrease in comparison to prior exam which is statistically significant. Femoral neck BMD is 0.696 g/cm2 T-score is -1.4 FRAX: 10 year risk for a major osteoporotic fracture is 12 %, 10 year risk for a hip fracture is 2.4 % IMPRESSION: Low bone mass REFERENCE: Bone mineral density: Normal (T-score above or = -1.0) Low bone mass (T-score between -1.0 and -2.5) replaces the previously used term osteopenia Osteoporosis (T-score = or below -2.5) Medical evaluation for secondary causes of low bone mineral density may be appropriate. FRAX is a World Health Organization validated fracture risk assessment tool that calculates a person's 10 year probability of a major osteoporosis related fracture and hip fracture. According to the National Osteoporosis Foundation guidelines, postmenopausal women and men age 50 or older with low bone mass and a 10 year probability of a major osteoporosis related fracture = or greater than 20% or a 10 year probability of a hip fracture = or greater than 3% should be considered for treatment. For further information, including treatment recommendations, please refer to the 2019 ISCD Official Positions (http://www.iscd.org) and the NOF's Clinician's Guide to Prevention and Treatment of Osteoporosis (http://www.nof.org/professionals/clinical-guidelines) THIS IS AN ELECTRONICALLY VERIFIED FINAL REPORT 10/31/2022 8:32 AM - Electronically signed by Areli Menendez M.D. TW: Report ID: [id number] Reading Location: [id number] Procedure Note Areli Menendez MD - 10/31/2022 EXAM DESCRIPTION: DEXA AXIAL SKELETON BONE DENSITY 1 OR MORE SITES REASON FOR STUDY: 77 y/o year old F with given history of:Postmenopausal status. Patient takes vitamin-D. Curriculum Specialist/Model: [employer] A (S/N [id number]) CLINICAL INFORMATION: Current height: 65 inches Maximum height: 66.5 inches Weight: 186.4 pounds Risk factors: Non COMPARISON: 07/04/2020 FINDINGS: AP LUMBAR SPINE L1-L4: Total BMD is 1.054 g/cm2 T-score is 0.1 This is a 4% increase in comparison to prior exam which is statistically significant. LEFT HIP: Total BMD is 0.852 g/cm2 T-score is -0.7 This is an 8.5% decrease in comparison to prior exam which isstatistically significant. Femoral neck BMD is 0.696 g/cm2 T-score is -1.4 FRAX: 10 year risk for a major osteoporotic fracture is 12 %, 10 year risk for ahip fracture is 2.4 % IMPRESSION: Low bone mass REFERENCE: Bone mineral density: Normal (T-score above or = -1.0) Low bone mass (T-score between -1.0 and -2.5) replaces thepreviously used term osteopenia Osteoporosis (T-score = or below -2.5) Medical evaluation for secondary causes of low bone mineral density may be appropriate. FRAX is a World Health Organization validated fracture risk assessmenttool that calculates a person's 10 year probability of a major osteoporosisrelated fracture and hip fracture. According to the National OsteoporosisFoundation guidelines, postmenopausal women and men age 50 or older with low bonemass and a 10 year probability of a major osteoporosis related fracture = or greater than 20% or a 10 year probability of a hip fracture = or greaterthan 3% should be considered for treatment. For further information, including treatment recommendations, please referto the 2019 ISCD Official Positions (http://www.iscd.org) and the NOF's Clinician's Guide to Prevention and Treatment of Osteoporosis (http://www.nof.org/professionals/clinical-guidelines) THIS IS AN ELECTRONICALLY VERIFIED FINAL REPORT 10/31/2022 8:32 AM - Electronically signed by Areli Menendez M.D. TW: TW Report ID: [id number] Reading Location: [id number] María Gusman MD IMG DXA PROCEDURE S Final Result * Hepatitis C antibody (12/17/2019 8:52 AM CDT) Hep C Ab NONREACT NONREACTIVE [facility] Comment: Siemens CentaurXP using KARLA (chemiluminescent immunoassay) technology. NONREACTIVE: Antibodies to Hepatitis C not detected. This does not exclude early acute Hepatitis C infection, possibility of exposure to Hepatitis C, antibodies below detection limit, or to lack of antibody reactivity to the antigen used in this assay. EQUIVOCAL: Antibodies to Hepatitis C may or may not be present. Sample to be confirmed by real-time PCR method. REACTIVE: Antibodies to Hepatitis C detected.Sample to be confirmed by real-time PCR method. Blood specimen (specimen) 12/17/2019 8:52 AM CDT 12/17/2019 9:02 AM CDT Narrative Resulting Agency Comment CLI María Gusman MD LAB MICROBIOLOGY - GENERAL ORDERABLES Final Result [address] [phone] * Stool DNA - Cologuard (01/14/2019) Scribed Stool DNA - Cologuard Negative [facility] Stool 01/14/2019 [place] Provider LAB BODY FLUIDS AND STOOL S ORDERABLES Final Result [facility] from Last 3 Months or Most Recently Relevant to Health Maintenance Insurance [facility] MDCR HMO REF MEDICARE SOLUTIONS Advance Directives For more information, please contact: [phone] Documents on File Type Date Recorded Patient Sensory Scientist Expl anation Power of Metal Drawer 03/06/2024 2:05 PM Maxin e Durable [email or web address].pdf ADVANCE DIRECTIVE 03/06/2024 2:05 PM Maxin e Living Will2.pdf Power of Metal Drawer 03/06/2024 2:02 PM Jeni Lal [facility] POA2.pdf Power of Metal Drawer 03/06/2024 2:00 PM Jeannine Almodovar [facility] Healthcare [email or web address].pdf Healthcare Agents on File Name Relationship Healthcare Agent Relationshi p Communication Jeannine Hemvarghese Daughter Health Care Agent Jeni Lal Daughter [facility] Health Ca re Agent Care Teams Machine Stripper Relationship Specialty Start Date End Date María Gusman MD PCP - General Family Medicine 06/29/19
--- OUTSIDE RECORDS SUMMARY | 2024-06-10 12:30 | XMS_ITS | Referral Summary ---
Author Organization [facility] Care Team Providers Care Coloring Checker Name Role Phone María Gusman MD Primary Care Pro vider Encounters Date Type Department Care Team Description 04/14/2024 Telephone [facility] Diabetes and Endocrinology [address] [place] [phone] Harmony Camarena DESULPHURING OPERATOR Reschedule 03/18/2024 Telephone [facility] Primary Care at [address] [phone] María Gusman MD Medical Question/Miscellaneous 03/12/2024 11:15 AM SPORTS TEAM MANAGER Office Visit [facility] Primary Care at [address] [phone] María Gusman MD Encounter for [...] of left ear from Last 3 Months Allergies No known active allergies Medications cholecalciferol [...] 15 g 09/05/19 23 Active Dexcom G7 Mortgage Loan Closer miscIndications:Ty pe 1 diabetes mellitus with hyperglycemia [...] 11/2021 Assessment & Plan (03/02/2024 12:06 PM SPORTS TEAM MANAGER): Chronic problem. A1c uncontrolled but stable at [...] Medel). UTD on labs. Discussed with Valentina Cordoba: Strive for regular [...] Will update MA/Cr today.Verified that she uses mychart. Aware to check results/results letter in [employer]. Will contact by phone if needed. Discussed [...] units Assessment & Plan (03/21/2023 3:56 PM SPORTS TEAM MANAGER): Hba1c was Lab Results Component Value Date [...] snack Assessment & Plan (03/06/2022 1:03 PM SPORTS TEAM MANAGER): Lab Results Component Value Date HGBA1C 8.2 02/08/2022 Following with endocrine, reviewed note Continue current insulin dosing Assessment & Plan (02/08/2022 2:21 PM SPORTS TEAM MANAGER): Hba1c was Lab Results Component Value Date [...] 02/03/2020 Assessment & Plan (03/12/2024 11:24 AM SPORTS TEAM MANAGER): Reviewed PMH & PHQ Screening PHQ-2 Total Score (If total score is 3 or more points, staff should administer the PHQ-9): 1 Hearing/vision screening reviewed, referrals placed as needed Fall risk reviewed Reviewed medications and supplements Specialists: cardiology, endocrine no evidence of cognitive impairment HCM: orders placed as needed Assessment & Plan (09/12/2023 2:09 PM CDT): Reviewed PM & Reviewed medications and supplements HCM: orders placed as needed Assessment & Plan (03/07/2023 1:13 PM SPORTS TEAM MANAGER): Reviewed [facility] PHQ Screening PHQ-2 Total Score (If total score is 3 or more points, staff should administer the PHQ-9): 0 Hearing/vision screening reviewed, referrals placed as needed Fall risk reviewed Reviewed medications and supplements Specialists: cardiology, endocrine no evidence of cognitive impairment HCM: orders placed as needed Assessment & Plan (09/04/2022 1:20 PM CDT): Reviewed [facility] & Reviewed medications and supplements HCM: orders placed as needed Assessment & Plan (03/06/2022 1:05 PM SPORTS TEAM MANAGER): Reviewed [facility] PHQ Screening PHQ-2 Total Score (If total score is 3 or more points, staff should administer the PHQ-9): 0 PHQ-9 Total Score: 0 Hearing/vision screening reviewed, referrals placed as needed Fall risk reviewed Reviewed medications and supplements Specialists: cardiology, endocrine no evidence of cognitive impairment HCM: orders placed as needed Assessment & Plan (02/20/2021 9:22 AM SPORTS TEAM MANAGER): Reviewed [facility] PHQ Screening PHQ-2 Total Score (If total score is 3 or more points, staff should administer the PHQ-9): 0 Hearing/vision screening reviewed, referrals placed as needed Fall risk reviewed Reviewed medications and supplements Specialists: cardiology no evidence of cognitive impairment HCM: orders placed as needed Assessment & Plan (02/03/2020 11:12 AM SPORTS TEAM MANAGER): Former smoker <20 pack year history, quit [...] Hypertension associated with type 1 diabetes ariana juani Assessment & Plan (03/12/2024 11:58 AM SPORTS TEAM MANAGER): Continue 20mg lisinopril twice a day, 25mg hydrochlorothiazide, 10mg amlodipine, 12.5mg coreg & 5mg terazosin Assessment & Plan (03/02/2024 11:36 AM SPORTS TEAM MANAGER): Chronic problem. Controlled on current carvedilol 12.5mg [...] terazosin Assessment & Plan (03/07/2023 1:16 PM SPORTS TEAM MANAGER): BP controlled Continue 20mg lisinopril twice a day, 25mg hydrochlorothiazide, 10mg amlodipine, 12.5mg coreg & 2mg terazosin Assessment & Plan (09/04/2022 1:19 PM CDT): BP at goal Continue 20mg lisinopril twice a day, 25mg hydrochlorothiazide, 10mg amlodipine, 12.5mg coreg & 2mg terazosin Assessment & Plan (03/06/2022 1:04 PM SPORTS TEAM MANAGER): BP at goal Continue 20mg lisinopril twice [...] XL Assessment & Plan (05/23/2021 9:22 AM SPORTS TEAM MANAGER): BP at goal Continue 20mg lisinopril twice a day, 25mg hydrochlorothiazide, 10mg amlodipine and 50mg metoprolol XL Assessment & Plan (02/20/2021 9:23 AM SPORTS TEAM MANAGER): BP at goal Continue 20mg lisinopril twice [...] XL Assessment & Plan (05/19/2020 10:45 AM SPORTS TEAM MANAGER): BP at goal On 20mg lisinopril twice a day, 25mg hydrochlorothiazide, 10mg amlodipine and 50mg metoprolol XL Assessment & Plan (02/03/2020 11:03 AM SPORTS TEAM MANAGER): BP initially above goal On 20mg lisinopril, [...] mplication Assessment & Plan (03/12/2024 11:24 AM SPORTS TEAM MANAGER): Lab Results Component Value Date HGBA1C 8.0 03/02/2024 Following with endocrine Continue current insulin dosing Assessment & Plan (09/12/2023 2:09 PM CDT): Lab Results Component Value Date HGBA1C 7.3 08/22/2023 Following with endocrine Continue current insulin dosing Assessment & Plan (03/07/2023 1:14 PM SPORTS TEAM MANAGER): Lab Results Component Value Date HGBA1C 7.4 [...] PM Assessment & Plan (05/23/2021 9:22 AM SPORTS TEAM MANAGER): Check a1c Continue 25nph & 3 units regular in AM & 14 nph & 6 regular in PM Assessment & Plan (02/20/2021 9:33 AM SPORTS TEAM MANAGER): Lab Results Component Value Date HGBA1C 6.9 [...] recheck Assessment & Plan (05/19/2020 1:04 PM SPORTS TEAM MANAGER): A1c improved to 8.2, but still above [...] recheck Assessment & Plan (02/03/2020 11:02 AM SPORTS TEAM MANAGER): Uncontrolled. Now having borderline hypoglycemia at night. [...] hypothyroidism Assessment & Plan (03/12/2024 11:26 AM SPORTS TEAM MANAGER): TSH 2.Apr, controlled Continue 75mcg levothyroxine Assessment & Plan (03/02/2024 11:36 AM SPORTS TEAM MANAGER): Chronic problem. Managed by PCP. Clinically & [...] levothyroxine Assessment & Plan (03/07/2023 1:17 PM SPORTS TEAM MANAGER): tsh 2.26 03/06/22 Continue 75mcg levothyroxine Assessment & Plan (09/04/2022 1:09 PM CDT): tsh 2.26 03/06/22 Continue 75mcg levothyroxine Assessment & Plan (03/06/2022 1:04 PM SPORTS TEAM MANAGER): Lab Results Component Value Date TSH 0.40 02/22/2021 Continue 75mcg levothyroxine Assessment & Plan (11/21/2021 1:31 PM CDT): Lab Results Component Value Date TSH 0.40 02/22/2021 Continue 75mcg levothyroxine Assessment & Plan (08/21/2021 9:56 AM CDT): Lab Results Component Value Date TSH 0.40 02/22/2021 Continue 75mcg levothyroxine Assessment & Plan (05/23/2021 9:24 AM SPORTS TEAM MANAGER): Lab Results Component Value Date TSH 0.40 02/22/2021 Continue 75mcg levothyroxine Assessment & Plan (12/01/2020 1:58 PM CDT): Lab Results Component Value Date TSH 0.590 12/17/2019 Continue 75mcg levothyroxine Recheck tsh at next appt Assessment & Plan (07/04/2020 10:40 AM CDT): Lab Results Component Value Date TSH 0.590 12/17/2019 Continue 75mcg levothyroxine Assessment & Plan (05/19/2020 10:45 AM SPORTS TEAM MANAGER): Lab Results Component Value Date TSH 0.590 12/17/2019 Continue 75mcg levothyroxine Assessment & Plan (02/03/2020 11:00 AM SPORTS TEAM MANAGER): Lab Results Component Value Date TSH 0.590 [...] deficiency Assessment & Plan (03/12/2024 11:26 AM SPORTS TEAM MANAGER): Continue supplementation Assessment & Plan (09/12/2023 2:09 PM CDT): Continue supplementation Assessment & Plan (09/04/2022 1:10 PM CDT): Continue supplementation Assessment & Plan (11/21/2021 1:31 PM CDT): Continue supplementation Assessment & Plan (12/01/2020 1:59 PM CDT): Continue supplementation Assessment & Plan (05/19/2020 10:45 AM SPORTS TEAM MANAGER): On 1,000 international units daily Assessment & Plan (02/03/2020 11:00 AM SPORTS TEAM MANAGER): Last level 70 Recommend decreasing supplementation to [...] mellitus Assessment & Plan (03/12/2024 11:25 AM SPORTS TEAM MANAGER): Continue statin Assessment & Plan (03/02/2024 11:36 AM SPORTS TEAM MANAGER): Chronic problem. Currently taking Atorvastatin 10mg. Last lipid panel: 11/01/23 LDL=65, NS=590. Assessment & Plan (11/20/2023 1:49 PM CDT): Chronic problem. Currently taking Atorvastatin 10mg. Last lipid panel: 03/06/23 LDL=83, TG=82. Assessment & Plan (09/12/2023 2:09 PM CDT): Continue statin Assessment & Plan (08/22/2023 2:52 PM CDT): Chronic, stable. Continue Atorvastatin Assessment & Plan (03/21/2023 3:54 PM SPORTS TEAM MANAGER): Chronic, stable Continue statin therapy with atorvastatin 10 mg daily Assessment & Plan (03/07/2023 1:16 PM SPORTS TEAM MANAGER): Continue statin Assessment & Plan (09/04/2022 1:08 PM CDT): Continue statin Assessment & Plan (03/06/2022 1:03 PM SPORTS TEAM MANAGER): Continue statin Assessment & Plan (11/21/2021 1:31 PM CDT): Continue statin Assessment & Plan (08/21/2021 9:51 AM CDT): Continue 10mg atorvastatin Assessment & Plan (05/23/2021 9:22 AM SPORTS TEAM MANAGER): Continue 10mg atorvastatin Assessment & Plan (02/20/2021 9:23 AM SPORTS TEAM MANAGER): Continue 10mg atorvastatin Assessment & Plan (12/01/2020 1:59 PM CDT): Continue 10mg atorvastatin Assessment & Plan (08/01/2020 12:38 PM CDT): Reviewed labs and cardiology note Continue 10mg atorvastatin Assessment & Plan (07/04/2020 10:40 AM CDT): On 10mg atorvastatin Assessment & Plan (05/19/2020 10:45 AM SPORTS TEAM MANAGER): On 10mg atorvastatin Lipids checked 12/17/19 Assessment & Plan (02/03/2020 11:00 AM SPORTS TEAM MANAGER): On 10mg atorvastatin Lipids checked 12/16 Assessment [...] 09/12/2023 Assessment & Plan (02/20/2021 9:23 AM SPORTS TEAM MANAGER): BMI Follow-up includes: nutrition counseling. Assessment & Plan (02/03/2020 11:00 AM SPORTS TEAM MANAGER): BMI Follow-up includes: nutrition counseling. Assessment & Plan (01/04/2020 6:53 AM CDT): BMI Follow-up includes: nutrition counseling and exercise counseling. Assessment & Plan (12/04/2019 6:29 AM CDT): BMI Follow-up includes: nutrition counseling and exercise counseling. Assessment & Plan (09/18/2019 3:35 PM CDT): BMI Follow-up includes: nutrition counseling. Assessment & Plan (08/21/2019 11:52 AM CDT): BMI Follow-up includes: nutrition counseling. Immunizations Immunization Administration Dates Next Due Influenza, [...] Rsvpref, Diluent (Abrysvo) 01/24/2024 ZOSTER Recombinant 01/11/2021,08/30/2020 Social History Tobacco Use Types Packs/Day Years [...] not to disclose 2019 8:13 AM CDT Last Filed Vital Signs Vital Sign Reading Time Taken Comments Blood Pressure 136/82 03/12/2024 11:14 AM SPORTS TEAM MANAGER Pulse 70 03/12/2024 11:14 AM SPORTS TEAM MANAGER Temperature 36.6 C (97.8 F) 03/12/2024 11:14 AM SPORTS TEAM MANAGER Respiratory Rate 18 03/12/2024 11:14 AM SPORTS TEAM MANAGER Oxygen Saturation 98% 03/12/2024 11:14 AM SPORTS TEAM MANAGER Inhaled Oxygen Concentration - - Weight 78.7 kg (173 lb 9.6 oz) 03/12/2024 11:14 AM SPORTS TEAM MANAGER Height 167.6 cm (5' 6 ) 03/12/2024 11:14 AM SPORTS TEAM MANAGER Body Mass Index 28.02 03/12/2024 11:14 AM SPORTS TEAM MANAGER Plan of Treatment Not on file Procedures Procedure Name Priority Date/Time Associated Diagnosis Comments POCT HEMOGLOBIN A1C Routine 03/02/2024 11:27 AM SPORTS TEAM MANAGER Type 1 diabetes mellitus with hyperglycemia (HCC) [...] (ABNORMAL) POCT hemoglobin A1c (03/02/2024 11:27 AM SPORTS TEAM MANAGER) Hemoglobin A1C, POC 8.0 4.0 - 5.6 % Blood 03/02/2024 11:2 7 AM SPORTS TEAM MANAGER us Harmony Camarena DESULPHURING OPERATOR POINT OF CARE TEST ORDERA BLES Final Result * (ABNORMAL) Albumin Creatinine Ratio, Urine (11/28/2023 10:13 AM CDT) SCRIBED Creatinine, Urine 95.73 40 - 278 EXTERNAL LAB SCRIBED Microalbumin 75.8 NA - NA EXTERNAL LAB SCRIBED Microalb/Creat Ratio 79.1(A) 0 - 30 EXTERNAL LAB Urine 11/28/2023 10:1 3 AM CDT Harmony Camarena DESULPHURING OPERATOR LAB URINE ORDERABLES Janneth l Result Performing Organization Address [facility]/ZIP Co de Phone Number EXTERNAL LAB * (ABNORMAL) DIABETES EYE EXAM (11/21/2023 7:59 AM CDT) Historical Provider HEALTH MAINTENANCE Final Result * (ABNORMAL) Lipid panel (11/01/2023 10:11 AM CDT) SCRIBED Cholesterol, Total 149 0 - 200 EXTERNAL LAB SCRIBED HDL 60 40 - 60 EXTERNAL LAB SCRIBED LDL 65 <130 - NA EXTERNAL LAB SCRIBED Triglycerides 122 0 - 150 EXTERNAL LAB Blood 11/01/2023 10:1 1 AM CDT Historical Provider LAB BLOOD ORDERABLES Edit ed Result - Final Performing Organization Address [facility]/ZIP Co de Phone Number EXTERNAL LAB * (ABNORMAL) Comprehensive metabolic panel [...] Units/L EXTERNAL LAB SCRIBED eGFR in NonAfrican [place] Islander 48 >=60 - NA EXTERNAL LAB Blood 11/01/2023 10:1 1 AM CDT us Historical Provider LAB BLOOD ORDERABLES Edit ed [...] 0.36 - 3.74 mcU/mL EXTERNAL LAB Blood us Historical Provider LAB BLOOD ORDERABLES Janneth l Result EXTERNAL [...] history of: Postmenopausal status. Patient takes vitamin-D. Sr Account Executive/Model: [employer] A (S/N [id number]) CLINICAL INFORMATION: Current height: 65 inches Maximum [...] Areli Menendez M.D. TW: TW Report ID: [id number] [place] Location: [id number] Procedure Note Areli Menendez MD - 10/31/2022 EXAM DESCRIPTION: DEXA AXIAL SKELETON BONE DENSITY 1 OR MORE SITES REASON FOR STUDY: 77 y/o year old F with given history of:Postmenopausal status. Patient takes vitamin-D. Sr Account Executive/Model: [employer] A (S/N [id number]) CLINICAL INFORMATION: Current height: 65 inches Maximum [...] Areli Menendez M.D. TW: TW Report ID: [id number] [place] Location: [place] [address] María Gusman MD [facility] DXA PROCEDURE S Final Result * Hepatitis C antibody (12/17/2019 8:52 AM CDT) [facility] Hep C Ab NONREACT NONREACTIVE [facility] Comment: Siemens BIBA ApparelsaurXP using KARLA (chemiluminescent immunoassay) technology. NONREACTIVE: Antibodies [...] LAB MICROBIOLOGY - GENERAL ORDERABLES Final Result [address] [address], [facility] [phone] * Stool DNA - Cologuard (01/14/2019) Scribed Stool DNA - Cologuard Negative [facility] Stool 01/14/2019 Historical Provider LAB BODY FLUIDS AND STOOL S ORDERABLES Final Result Performing Organization Address City/[facility] Co de Phone Number Clickst from Last 3 Months or Most Recently Relevant to Health Maintenance Insurance [employer] Advance Directives For more information, please contact: [phone] Documents on File Type Date Recorded Patient Chute Puller Expl anation Power of Elementary Tutor 03/06/2024 2:05 PM Maxin e Durable POA2.pdf ADVANCE DIRECTIVE 03/06/2024 2:05 PM Maxin e Living Will2.pdf Power of Elementary Tutor 03/06/2024 2:02 PM Jeni Lal [facility] POA2.pdf Power of Elementary Tutor 03/06/2024 2:00 PM Jeannine [facility] Healthcare POA2.pdf Healthcare Agents on File Name Relationship Healthcare Agent Relationshi p Communication Jeannine Almodovar Daughter Health Care Agent Jeni Lal Daughter [facility] Health Ca re Agent Care Teams Coloring Checker Relationship Specialty Start Date End Date María Gusman MD PCP - General Family Medicine 06/29/19
[2024-06-12 02:44] LABS: Vitamin D 25 Hydroxy 39 ng/mL (30-100)
[2024-06-12 04:28] LABS: Hepatitis B Core Ab Total NON-REACTIVE (NON-REACTIVE)
[2024-06-18 06:23] LABS: Hepatitis B Surface Antibody NON-REACTIVE (NON-REACTIVE); Hepatitis B Surface Antigen NON-REACTIVE (NON-REACTIVE)
== END 2024-06-10 10:51 | disposition home or self-care (01) ==
LOC: CHSLAB 10:52
PROVIDERS: PCP Hospitalist; Visit Provider Hospitalist
DX: E10.3299 Type 1 diabetes mellitus with mild nonproliferative diabetic retinopathy without macular edema, unspecified eye (principal); E10.59 Type 1 diabetes mellitus with other circulatory complications; I15.2 Hypertension secondary to endocrine disorders; E10.69 Type 1 diabetes mellitus with other specified complication; E78.2 Mixed hyperlipidemia; Z11.59 Encounter for screening for other viral diseases; E55.9 Vitamin D deficiency, unspecified
CPT/HCPCS: 36415; 80053; 82306; 84443; 85025; 86704; 86706; 87340

== ENCOUNTER 2024-12-30 10:36 | Outpatient (CLI) | payer MEDICARE, SELFPAY ==
[2024-12-30 11:16] LABS: Hemoglobin A1C 6.8 % (<5.7)
[2024-12-30 11:19] LABS: MALB Creatinine Ratio 41.3 mg/g (0-30)
--- OUTSIDE RECORDS SUMMARY | 2024-12-30 11:19 | XMS_ITS | Encounter Summary ---
Author Organization [facility] Healthcare Address [address] [place] [address] Care Team Providers Care Lockmaker Name Role Phone María Gusman MD Primary Care Pro vider Encounter Details Date Type Department Care Team (Late st Contact Info) Description 11/03/2024 Results Follow-Up [facility] Medical [facility] Primary Care at [address] [phone] María Gusman MD [address] [place] [phone] Dexa Axial Skeleton Bone Density 1 or 2 Site Social History Tobacco Use Types Packs/Day Years Used Date Smoking Tobacco: Former Cigarettes 0.4 34 0 04/01/1972 - 1992 Smokeless Tobacco: Never Alcohol Use Standard Drinks/Week Comments Not Currently [...] more points, staff should administer the PHQ-9) 0 10/05/2024 Comments No Sex and Gender Information Value Date Recorded Sex Assigned at Not on file Legal Sex Female 10:49 AM CDT Gender Identity Female 12/27/2019 8:13 AM CDT Sexual Orientation Choose not to disclose 2019 8:13 AM CDT documented as of this encounter Plan of Treatment Not on file documented as of this encounter Visit Diagnoses Not on filedocumented in this encounter Care Teams Lockmaker Relationship Specialty Start Date End Date María Gusman MD PCP - General Family Medicine 06/29/19 documented as of this encounter
--- OUTSIDE RECORDS SUMMARY | 2024-12-30 11:20 | XMS_ITS | Clinical Summary ---
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:Ty pe 1 diabetes mellitus with hyperglycemia (HCC) USE TO CHECK BG DIRECTED 1 each 11/10/19 23 Active insulin NPH (HumuLIN N) 100 unit/mL vial for injectionIndicatio ns:Type 1 diabetes mellitus with other specified complication TAKE 20 UNITS IN THE MORNING AND 8 UNITS IN THE EVENING 45 mL 3 12/30/19 24 Active Additional Information Patient taking differently: TAKE 20 UNITS IN THE MORNING AND 10 UNITS IN THE EVENING, Reported on 12/10/2024 insulin regular (HumuLIN R) 100 unit/mL vial for injectionIndicatio ns:Type 1 diabetes mellitus with hyperglycemia (HCC) Inject 4-12 Units under the skin 3 (three) times a day before meals (12 units at breakfast, 4 units at lunch & 4 units at dinner) 45 mL 2 07/25/19 25 026 Active hydroCHLOROthiazid e (HYDRODIURIL) 25 mg tabletIndications: Hypertension associated with diabetes (HCC) TAKE 1 TABLET BY MOUTH DAILY 100 tablet 1 09/01/19 25 Active carvediloL (COREG) 12.5 mg tablet TAKE 1 TABLET BY MOUTH TWICE DAILY 200 tablet 2 10/20/19 25 Active atorvastatin (LIPITOR) 10 mg tabletIndications: 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 TAKE 1 TABLET BY MOUTH DAILY 100 tablet 1 10/18/19 25 Active lisinopriL (PRINIVIL,ZESTRIL) 20 mg tablet TAKE 1 TABLET BY MOUTH TWICE DAILY 200 tablet 2 10/20/19 25 Active Dexcom G7 Sensor deviceIndications: Type 1 diabetes mellitus with hyperglycemia (HCC) CHANGE SENSOR EVERY 10 DAYS 10 each 3 10/21/19 25 Active levothyroxine (SYNTHROID) 75 mcg tablet TAKE 1 TABLET BY MOUTH DAILY 100 tablet 1 11/03/19 25 Active amLODIPine (NORVASC) 10 mg tablet TAKE 1 TABLET BY MOUTH DAILY 100 tablet 2 11/07/19 25 Active Active Problems Problem Noted Date Diagnosed Date Annual physical exam 10/05/2024 Assessment & Plan (10/05/2024 2:07 PM CDT): Reviewed medications and supplements HCM: orders placed as needed Type 1 diabetes mellitus with hyperglycemia 11/2021 Assessment & Plan (12/10/2024 11:34 AM CDT): Chronic problem. A1c at goal & improved from 7.8% 07/24/24 to now 6.4%. reviewed dexcom download with Verónica during appt. She's going low consistently after breakfast & after dinner. -decrease the NPH at breakfast from 20 to 18 units -decrease the NPH at dinner from 10 to 8 units. Current medications: NPH 18 units with breakfast, 8 units with dinner Humulin R 12 units with breakfast, 4 units with lunch & dinner For sugars less than 120 at bedtime: have snack UTD on DM eye exam (11/21/23 +background retinlpathy Sharon Medel). Will update labs. Does not mychart. Verified phone #/address to contact re: results. Discussed with Valentina Cordoba: Strive for regular exercise (30min most days) and diet (get at least 4-5 servings of fruit and veggies daily, avoid processed foods, increase lean protein intake and decrease carb portions as well as fruit juices, regular soda & desserts). Watch carbs and simple sugars. Check the blood sugar: Dexcom G7. Check the feet daily for skin breakdown and infection. Assessment & Plan (10/05/2024 2:07 PM CDT): Lab Results Component Value Date HGBA1C 7.8 07/24/2024 Following with endocrine Continue current insulin dosing Assessment & Plan (07/24/2024 11:41 AM CDT): Chronic problem. A1c with slight improvement from 8.0% 03/02/24 to now 7.8%. reviewed dexcom download with Verónica during appt. She's running high after lunch into evening. Will add Humulin R 4 units at lunch time. Will keep breakfast at 12 units & dinner at 4 units. Current medications: NPH 20 units with breakfast, 10 units with dinner Humulin R 12 units with breakfast, 4 units with lunch & dinner For sugars less than 120 at [...] and simple sugars. Check the blood sugar: Dexcom G7. Check the feet daily for skin breakdown and infection. Assessment & Plan (03/02/2024 12:06 PM MARKETING ASSISTANT): Chronic problem. A1c uncontrolled but stable at [...] Will update MA/Cr today.Verified that she uses [employer]. Aware to check results/results letter in [employer]. Will contact by phone if needed. Discussed [...] units Assessment & Plan (03/21/2023 3:56 PM MARKETING ASSISTANT): Hba1c was Lab Results Component Value Date [...] snack Assessment & Plan (03/06/2022 1:03 PM MARKETING ASSISTANT): Lab Results Component Value Date HGBA1C 8.2 02/08/2022 Following with endocrine, reviewed note Continue current insulin dosing Assessment & Plan (02/08/2022 2:21 PM MARKETING ASSISTANT): Hba1c was Lab Results Component Value Date [...] 02/03/2020 Assessment & Plan (03/12/2024 11:24 AM MARKETING ASSISTANT): Reviewed PM & PHQ Screening PHQ-2 Total [...] needed Assessment & Plan (03/07/2023 1:13 PM MARKETING ASSISTANT): Reviewed PMH & FH PHQ Screening PHQ-2 Total Score (If total score is 3 or more points, staff should administer the PHQ-9): 0 Hearing/vision screening reviewed, referrals placed as needed Fall risk reviewed Reviewed medications and supplements Specialists: cardiology, endocrine no evidence of cognitive impairment HCM: orders placed as needed Assessment & Plan (09/04/2022 1:20 PM CDT): Reviewed [facility] & Reviewed medications and supplements HCM: orders placed as needed Assessment & Plan (03/06/2022 1:05 PM MARKETING ASSISTANT): Reviewed [facility] PHQ Screening PHQ-2 Total Score (If total score is 3 or more points, staff should administer the PHQ-9): 0 PHQ-9 Total Score: 0 Hearing/vision screening reviewed, referrals placed as needed Fall risk reviewed Reviewed medications and supplements Specialists: cardiology, endocrine no evidence of cognitive impairment HCM: orders placed as needed Assessment & Plan (02/20/2021 9:22 AM MARKETING ASSISTANT): Reviewed [facility] PHQ Screening PHQ-2 Total Score (If total score is 3 or more points, staff should administer the PHQ-9): 0 Hearing/vision screening reviewed, referrals placed as needed Fall risk reviewed Reviewed medications and supplements Specialists: cardiology no evidence of cognitive impairment HCM: orders placed as needed Assessment & Plan (02/03/2020 11:12 AM MARKETING ASSISTANT): Former smoker <20 pack year history, quit [...] 1 diabetes ariana litus Assessment & Plan (12/10/2024 10:55 AM CDT): Chronic problem. Controlled on current carvedilol 12.5mg bid, lisinopril 20mg daily, amlodipine 10mg daily, HCTZ 25mg daily Assessment & Plan (10/05/2024 2:07 PM CDT): Controlled Continue 20mg lisinopril twice a day, 25mg hydrochlorothiazide, 10mg amlodipine, 12.5mg coreg & 5mg terazosin Assessment & Plan (07/24/2024 11:24 AM CDT): Chronic problem. Controlled on current carvedilol 12.5mg bid, lisinopril 20mg daily, amlodipine 10mg daily, HCTZ 25mg daily Assessment & Plan (03/12/2024 11:58 AM MARKETING ASSISTANT): Continue 20mg lisinopril twice a day, 25mg hydrochlorothiazide, 10mg amlodipine, 12.5mg coreg & 5mg terazosin Assessment & Plan (03/02/2024 11:36 AM MARKETING ASSISTANT): Chronic problem. Controlled on current carvedilol 12.5mg [...] terazosin Assessment & Plan (03/07/2023 1:16 PM MARKETING ASSISTANT): BP controlled Continue 20mg lisinopril twice a day, 25mg hydrochlorothiazide, 10mg amlodipine, 12.5mg coreg & 2mg terazosin Assessment & Plan (09/04/2022 1:19 PM CDT): BP at goal Continue 20mg lisinopril twice a day, 25mg hydrochlorothiazide, 10mg amlodipine, 12.5mg coreg & 2mg terazosin Assessment & Plan (03/06/2022 1:04 PM MARKETING ASSISTANT): BP at goal Continue 20mg lisinopril twice [...] XL Assessment & Plan (05/23/2021 9:22 AM MARKETING ASSISTANT): BP at goal Continue 20mg lisinopril twice a day, 25mg hydrochlorothiazide, 10mg amlodipine and 50mg metoprolol XL Assessment & Plan (02/20/2021 9:23 AM MARKETING ASSISTANT): BP at goal Continue 20mg lisinopril twice [...] XL Assessment & Plan (05/19/2020 10:45 AM MARKETING ASSISTANT): BP at goal On 20mg lisinopril twice a day, 25mg hydrochlorothiazide, 10mg amlodipine and 50mg metoprolol XL Assessment & Plan (02/03/2020 11:03 AM MARKETING ASSISTANT): BP initially above goal On 20mg lisinopril, [...] 160/89 today, above goal Continue 20mg lisinopril Acquired hypothyroidism Assessment & Plan (10/05/2024 2:08 PM CDT): TSH 2.04 June 2024, controlled Continue 75mcg levothyroxine Assessment & Plan (07/24/2024 11:24 AM CDT): Chronic problem. Managed by PCP. Clinically & biochemically euthyroid at this time. Currently taking levothyroxine 75 mcg daily. Aware to take 1st thing in morning, 30-60 minutes before food/drink/other medications. Assessment & Plan (03/12/2024 11:26 AM MARKETING ASSISTANT): TSH 2.Apr, controlled Continue 75mcg levothyroxine Assessment & Plan (03/02/2024 11:36 AM MARKETING ASSISTANT): Chronic problem. Managed by PCP. Clinically & [...] levothyroxine Assessment & Plan (03/07/2023 1:17 PM MARKETING ASSISTANT): tsh 2.26 03/06/22 Continue 75mcg levothyroxine Assessment & Plan (09/04/2022 1:09 PM CDT): tsh 2.26 03/06/22 Continue 75mcg levothyroxine Assessment & Plan (03/06/2022 1:04 PM MARKETING ASSISTANT): Lab Results Component Value Date TSH 0.40 02/22/2021 Continue 75mcg levothyroxine Assessment & Plan (11/21/2021 1:31 PM CDT): Lab Results Component Value Date TSH 0.40 02/22/2021 Continue 75mcg levothyroxine Assessment & Plan (08/21/2021 9:56 AM CDT): Lab Results Component Value Date TSH 0.40 02/22/2021 Continue 75mcg levothyroxine Assessment & Plan (05/23/2021 9:24 AM MARKETING ASSISTANT): Lab Results Component Value Date TSH 0.40 02/22/2021 Continue 75mcg levothyroxine Assessment & Plan (12/01/2020 1:58 PM CDT): Lab Results Component Value Date TSH 0.590 12/17/2019 Continue 75mcg levothyroxine Recheck tsh at next appt Assessment & Plan (07/04/2020 10:40 AM CDT): Lab Results Component Value Date TSH 0.590 12/17/2019 Continue 75mcg levothyroxine Assessment & Plan (05/19/2020 10:45 AM MARKETING ASSISTANT): Lab Results Component Value Date TSH 0.590 12/17/2019 Continue 75mcg levothyroxine Assessment & Plan (02/03/2020 11:00 AM MARKETING ASSISTANT): Lab Results Component Value Date TSH 0.590 [...] levothyroxine Vitamin D deficiency Assessment & Plan (10/05/2024 2:08 PM CDT): 39 in May 2024 Continue supplementation Assessment & Plan (03/12/2024 11:26 AM MARKETING ASSISTANT): Continue supplementation Assessment & Plan (09/12/2023 2:09 PM CDT): Continue supplementation Assessment & Plan (09/04/2022 1:10 PM CDT): Continue supplementation Assessment & Plan (11/21/2021 1:31 PM CDT): Continue supplementation Assessment & Plan (12/01/2020 1:59 PM CDT): Continue supplementation Assessment & Plan (05/19/2020 10:45 AM MARKETING ASSISTANT): On 1,000 international units daily Assessment & Plan (02/03/2020 11:00 AM MARKETING ASSISTANT): Last level 70 Recommend decreasing supplementation to [...] type 1 diabetes mellitus Assessment & Plan (12/10/2024 10:58 AM CDT): Chronic problem. Currently taking Atorvastatin 10mg. Last lipid panel: 11/01/23 LDL=65, XY=485. Will update labs. Does not mychart. Verified phone #/address to contact re: results. Assessment & Plan (10/05/2024 2:07 PM CDT): Continue statin Assessment & Plan (07/24/2024 11:25 AM CDT): Chronic problem. Currently taking Atorvastatin 10mg. Last lipid panel: 11/01/23 LDL=65, LC=495. Assessment & Plan (03/12/2024 11:25 AM MARKETING ASSISTANT): Continue statin Assessment & Plan (03/02/2024 11:36 AM MARKETING ASSISTANT): Chronic problem. Currently taking Atorvastatin 10mg. Last lipid panel: 11/01/23 LDL=65, PP=823. Assessment & Plan (11/20/2023 1:49 PM CDT): Chronic problem. Currently taking Atorvastatin 10mg. Last lipid panel: 03/06/23 LDL=83, TG=82. Assessment & Plan (09/12/2023 2:09 PM CDT): Continue statin Assessment & Plan (08/22/2023 2:52 PM CDT): Chronic, stable. Continue Atorvastatin Assessment & Plan (03/21/2023 3:54 PM MARKETING ASSISTANT): Chronic, stable Continue statin therapy with atorvastatin 10 mg daily Assessment & Plan (03/07/2023 1:16 PM MARKETING ASSISTANT): Continue statin Assessment & Plan (09/04/2022 1:08 PM CDT): Continue statin Assessment & Plan (03/06/2022 1:03 PM MARKETING ASSISTANT): Continue statin Assessment & Plan (11/21/2021 1:31 PM CDT): Continue statin Assessment & Plan (08/21/2021 9:51 AM CDT): Continue 10mg atorvastatin Assessment & Plan (05/23/2021 9:22 AM MARKETING ASSISTANT): Continue 10mg atorvastatin Assessment & Plan (02/20/2021 9:23 AM MARKETING ASSISTANT): Continue 10mg atorvastatin Assessment & Plan (12/01/2020 1:59 PM CDT): Continue 10mg atorvastatin Assessment & Plan (08/01/2020 12:38 PM CDT): Reviewed labs and cardiology note Continue 10mg atorvastatin Assessment & Plan (07/04/2020 10:40 AM CDT): On 10mg atorvastatin Assessment & Plan (05/19/2020 10:45 AM MARKETING ASSISTANT): On 10mg atorvastatin Lipids checked 12/17/19 Assessment & Plan (02/03/2020 11:00 AM MARKETING ASSISTANT): On 10mg atorvastatin Lipids checked 12/16 Assessment [...] 09/12/2023 Assessment & Plan (02/20/2021 9:23 AM MARKETING ASSISTANT): BMI Follow-up includes: nutrition counseling. Assessment & Plan (02/03/2020 11:00 AM MARKETING ASSISTANT): BMI Follow-up includes: nutrition counseling. Assessment & Plan (01/04/2020 6:53 AM CDT): BMI Follow-up includes: nutrition counseling and exercise counseling. Assessment & Plan (12/04/2019 6:29 AM CDT): BMI Follow-up includes: nutrition counseling and exercise counseling. Assessment & Plan (09/18/2019 3:35 PM CDT): BMI Follow-up includes: nutrition counseling. Assessment & Plan (08/21/2019 11:52 AM CDT): BMI Follow-up includes: nutrition counseling. Type 1 diabetes mellitus wit h other specified complication 07/24/2024 Assessment & Plan (03/12/2024 11:24 AM MARKETING ASSISTANT): Lab Results Component Value Date HGBA1C 8.0 03/02/2024 Following with endocrine Continue current insulin dosing Assessment & Plan (09/12/2023 2:09 PM CDT): Lab Results Component Value Date HGBA1C 7.3 08/22/2023 Following with endocrine Continue current insulin dosing Assessment & Plan (03/07/2023 1:14 PM MARKETING ASSISTANT): Lab Results Component Value Date HGBA1C 7.4 [...] PM Assessment & Plan (05/23/2021 9:22 AM MARKETING ASSISTANT): Check a1c Continue 25nph & 3 units regular in AM & 14 nph & 6 regular in PM Assessment & Plan (02/20/2021 9:33 AM MARKETING ASSISTANT): Lab Results Component Value Date HGBA1C 6.9 [...] recheck Assessment & Plan (05/19/2020 1:04 PM MARKETING ASSISTANT): A1c improved to 8.2, but still above [...] recheck Assessment & Plan (02/03/2020 11:02 AM MARKETING ASSISTANT): Uncontrolled. Now having borderline hypoglycemia at night. 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 Medical Office Bldg 1 [facility] [address] [place] [address] Post-menopausal Discharge Disposition: Discharge to home or self care 11/03/2024 Results Follow-Up [facility] [place] [address] [place] [address] [address] [place] [phone] María Gusman MD Dexa Axial Skeleton Bone Density 1 or 2 Site 10/05/2024 2:00 PM CDT Office Visit [facility] [place] [address] [place] [address] [address] [place] [phone] María Gusman MD Annual physical exam (Primary Dx); Post-menopausal; Type 1 diabetes mellitus with hyperglycemia (HCC); Hypertension associated with type 1 diabetes mellitus (HCC); 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); Acquired hypothyroidism; Soft tissue mass from Last 3 Months Immunizations Immunization Administration [...] disease Vitamin D deficiency Hyperlipidemia Diabetes mellitus Family History Medical History Relation Name Comments Emphysema Father Breast cancer Mother Trina Khan Diabetes Mother Trina Khan Breast cancer Paternal Half-Sister Relation Name Status Comments Father Mother Trnia Khna Paternal Half-Sister Social History Tobacco Use Types [...] Sign Reading Time Taken Comments Blood Pressure 132/68 12/10/2024 11:08 AM CDT Pulse 66 12/10/2024 11:08 AM CDT Temperature 36.5 C (97.7 F) 10/05/2024 1:55 PM CDT Respiratory Rate 16 12/10/2024 11:08 AM CDT Oxygen Saturation 97% 11/05/2024 2:22 PM CDT Inhaled Oxygen Concentration - - Weight 78 kg (172 lb) 12/10/2024 11:08 AM CDT Height 167.3 cm (5' 5.87) 12/10/2024 11:08 AM C DT Body Mass Index 27.87 12/10/2024 11:08 AM CDT Plan of Treatment Health Maintenance Due Date Last Done Comments DTaP/Tdap/Td Vaccine (1 - Tdap) 1956 Lipid Panel 10/31/2024 11/01/2023, 08/2022, 03/06/2023, Additional history exists Dilated Eye Exam 11/20/2024 11/21/2023, , 01/08/2022, Additional history exists Albumin Creatinine Ratio, Urine 11/27/2024 11/28/2023, 11/13/2022, 05/24/2021 Covid-19 Vaccine (2023-05 5 season) 2024 01/02/2024, 01/21/2023, 12/25/2021, Additional history exists Influenza Vaccine (#1) 2024 , 01/21/2023, 01/08/2022, Additional history exists Fall Risk Assessment 03/12/2025 03/12/2024, 03/21/2023, 03/07/2023, Additional history exists Hemoglobin A1C 06/09/2025 12/10/2024, 07/01, 03/02/2024, Additional history exists TSH Level 06/10/2025 06/10/2024, 04/02, 02/22/2021, Additional history exists eGFR 06/10/2025 06/10/2024, 0805/2023, 12/04/2022, Additional history exists Foot Exam 07/24/2025 07/24/2024, 1205/2023, 03/07/2023, Additional history exists Depression Screening 10/05/2025 10/05/2024, 03/12/2024, 03/21/2023, Additional history exists Well Visit 65+ 10/05/2025 10/05/2024, 03/01, 09/12/2023, Additional history exists Osteoporosis Screening-Bone Density Scan 11/03/2026 11/03/2024, 10/30/2022, 07/04/2020 Colon Cancer Screening-DNA Stool Discontinued 01/15/20 19, 01/14/2019 Colon Cancer Screening-FIT Discontinued 01/14/2019, Colon Cancer Screening-FOBT Discontinued 01/14/2019, 1 Colorectal Cancer Screening Discontinued Hepatitis C Screening Completed 12/17/2019 Zoster Vaccine Completed 01/11/2021, 08/30/2020 Pneumococcal vaccine 65+ Completed 022, 03/15/2021, 02/03/2020 Breast Cancer Screening-Mammogram Discontinued 024, 10/16/2019 Hepatitis B Screening Completed 06/10/2024 Colon Cancer Screening-CT Colonography Discontinued Colon Cancer Screening-Colonoscopy Discontinued Colon Cancer Screening-Sigmoidoscopy Discontinued Procedures Procedure Name Priority Date/Time Associated Diagnosis Comments POCT HEMOGLOBIN A1C Routine 12/10/2024 11:17 AM CDT Type 1 diabetes mellitus with hyperglycemia (HCC) POCT GLUCOSE Routine 12/10/2024 11:10 AM CDT Type 1 diabetes mellitus with hyperglycemia (HCC) DEXA AXIAL SKELETON BONE DENSITY 1 OR MORE SITES Schedule Routine, Read Routine (OP Routine) 11/03/2024 10:27 AM CDT Post-menopausal COMPREHENSIVE METABOLIC PANEL Routine 06/10/2024 TSH Routine 06/10/2024 ALBUMIN CREATININE RATIO, URINE Routine 11/28/2023 10:13 AM CDT Type 1 diabetes mellitus with hyperglycemia (HCC) HM DIABETES EYE EXAM Routine 11/21/2023 LIPID PANEL Routine 11/01/2023 10:11 AM CDT SCREENING MAMMOGRAM BILATERAL W SHANT Schedule Routine, Read Routine (OP Routine) 10/18/2023 10:40 AM CDT Screening mammogram, encounter for HEPATITIS C ANTIBODY Routine 12/17/2019 8:52 AM CDT Need for hepatitis C screening test STOOL DNA COLOGUARD Routine 01/14/2019 from Last 3 Months or Most Recently Relevant to Health Maintenance Results * (ABNORMAL) POCT hemoglobin A1c (12/10/2024 11:17 AM CDT) Hemoglobin A1C, POC 6.4(A) 4.0 - 5.6 % Blood 12/10/2024 11:1 7 AM CDT Harmony Camarena FUR DRUMMER POINT OF CARE TEST ORDERA BLES Final Result * POCT glucose (12/10/2024 11:10 AM CDT) Glucose Blood, POC 139 Normal Fasting 70 - 100, Random <200 mg/dL Blood 12/10/2024 11:1 0 AM CDT Harmony Camarena FUR DRUMMER POINT OF CARE TEST ORDERA BLES Final Result * Dexa Axial Skeleton Bone Density 1 or 2 Site (11/03/2024 10:27 AM CDT) Anatomical Region Laterality Modality Body N/A Mammography 11/03/2024 1:57 PM CDT Narrative 11/03/2024 1:58 PM CDT EXAM DESCRIPTION: DEXA AXIAL SKELETON BONE DENSITY 1 OR MORE SITES REASON FOR STUDY: 79 y/o year old F with given history of: post-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 CLINICAL INFORMATION: Current height: 65 inches Maximum height: 66.5 inches Weight: 169 pounds Risk factors: Postmenopausal COMPARISON: 07/04/2020 FINDINGS: AP LUMBAR SPINE L1-L4: Total BMD is 1.054 g/cm2 T-score is 0.1 This is increased in comparison to prior exam which is statistically significant. LEFT HIP: Total BMD is 0.829 g/cm2 T-score is -0.9 This is decrease in comparison to prior exam which is not statistically significant. Femoral neck BMD is 0.766 g/cm2 T-score is -0.7 FRAX: FRAX not reported due to T-scores of hip, femoral neck and/or spine being at or above -1.0 (Normal). IMPRESSION: 1. Normal bone mass. REFERENCE: Bone mineral density: T-Score: Normal (T-score above or = -1.0) Low bone mass (T-score between -1.0 and -2.5) replaces the previously used term osteopenia Osteoporosis (T-score = or below -2.5) Z-Score: Within the expected range for age (Z-score above -2.0) Below the expected range for age (Z-score is -2.0 or below) Please see below follow up recommendations. Medical evaluation for secondary causes of low [...] greater than 3% should be considered for pharmacological treatment for the prevention of osteoporosis. For further information, including treatment recommendations, please refer to the 2019 ISCD Official Positions (http://www.iscd.org) and the NOF's Clinician's Guide to Prevention and Treatment of Osteoporosis (http://www.nof.org/professionals/clinical-guidelines) THIS IS AN ELECTRONICALLY VERIFIED FINAL REPORT 11/03/2024 1:58 PM - Electronically signed by Antoni Garrido M.D. 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 CLINICAL INFORMATION: Current height: 65 inches Maximum height: 66.5 inches Weight: 169 pounds Risk factors: Postmenopausal COMPARISON: 07/04/2020 FINDINGS: AP LUMBAR SPINE L1-L4: Total BMD is 1.054 g/cm2 T-score is 0.1 This is increased in comparison to prior exam which is statistically significant. LEFT HIP: Total BMD is 0.829 g/cm2 T-score is -0.9 This is decrease in comparison to prior exam which is not statistically significant. Femoral neck BMD is 0.766 g/cm2 T-score is -0.7 FRAX: FRAX not reported due to T-scores of hip, femoral neck and/or spine beingat or above -1.0 (Normal). IMPRESSION: 1. Normal bone mass. REFERENCE: Bone mineral density: T-Score: Normal (T-score above or = -1.0) Low bone mass (T-score between -1.0 and -2.5) replaces thepreviously used term osteopenia Osteoporosis (T-score = or below -2.5) Z-Score: Within the expected range for age (Z-score above -2.0) Below the expected range for age (Z-score is -2.0 or below) Please see below follow up recommendations. Medical evaluation forsecondary causes of low bone mineral density may [...] or greaterthan 3% should be considered for pharmacological treatment for the preventionof osteoporosis. For further information, including treatment recommendations, please referto the 2019 ISCD Official Positions (http://www.iscd.org) and the NOF's Clinician's Guide to Prevention and Treatment of Osteoporosis (http://www.nof.org/professionals/clinical-guidelines) THIS IS AN ELECTRONICALLY VERIFIED FINAL REPORT 11/03/2024 1:58 PM - Electronically signed by Antoni Garrido M.D. MF: [id number] Report ID: [id number] Reading Location: [place] [id number] [place] María Gusman MD IMG DXA PROCEDURE S Final Result * TSH (06/10/2024) Scribed TSH 2.06 0.36 - 3.74 mcU/mL EXTERNAL LAB Blood us Historical Provider LAB BLOOD ORDERABLES Janneth l Result EXTERNAL LAB * (ABNORMAL) Comprehensive metabolic panel (06/10/2024) SCRIBED Sodium 141 136 - 145 mmol/L EXTERNAL LAB SCRIBED Potassium 4.2 3.5 - 5.1 mmol/L EXTERNAL LAB SCRIBED Chloride 102 98 - 108 mmol/L EXTERNAL LAB SCRIBED Carbon Dioxide 30 21 - 32 mmol/L EXTERNAL LAB SCRIBED Anion Gap 9 4 - 12 mmol/L EXTERNAL LAB SCRIBED Urea Nitrogen (BUN) 32(A) 7 - 18 mg/dl EXTERNAL LAB SCRIBED Creatinine 1.21(A) 0.55 - 1.02 mg/dl EXTERNAL LAB SCRIBED Glucose 114(A) 70 - 99 mg/dl EXTERNAL LAB SCRIBED Calcium 9.8 8.5 - 10.1 mg/dl EXTERNAL LAB SCRIBED Bilirubin 0.5 0.00 - 1.00 mg/dl EXTERNAL LAB SCRIBED Plasma Protein 7.5 6.4 - 8.2 g/dl EXTERNAL LAB SCRIBED Albumin 4.1 3.4 - 5.0 g/dl EXTERNAL LAB SCRIBED Alkaline Phosphatase 71 46 - 116 Units/L EXTERNAL LAB SCRIBED Alanine Transaminase (ALT) 8(A) 14 - 59 Units/L EXTERNAL LAB SCRIBED Aspartate Transaminase (AST) 14(A) 15 - 37 Units/L EXTERNAL LAB SCRIBED eGFR 43(A) 60 - 0 EXTERNAL LAB Blood Historical Provider LAB BLOOD ORDERABLES Janneth l Result EXTERNAL LAB * (ABNORMAL) Albumin Creatinine Ratio, Urine (11/28/2023 10:13 AM CDT) SCRIBED Creatinine, Urine 95.73 40 - 278 EXTERNAL LAB SCRIBED Microalbumin 75.8 NA - NA EXTERNAL LAB SCRIBED Microalb/Creat Ratio 79.1(A) 0 - 30 EXTERNAL LAB Urine 11/28/2023 10:1 3 AM CDT Harmony Camarena [facility] LAB URINE ORDERABLES Janneth l Result Performing Organization Address [facility] Co de Phone Number EXTERNAL LAB * (ABNORMAL) DIABETES EYE EXAM (11/21/2023) SCRIBED DIABETIC DILATED EYE EXAM Abnormal 11/21/2023 Result [facility] Historical Provider HEALTH MAINTENANCE Edited Result - Final * (ABNORMAL) Lipid panel (11/01/2023 10:11 AM CDT) SCRIBED Cholesterol, Total 149 0 - 200 EXTERNAL LAB SCRIBED HDL 60 40 - 60 EXTERNAL LAB SCRIBED LDL 65 <130 - NA EXTERNAL LAB SCRIBED Triglycerides 122 0 - 150 EXTERNAL LAB Blood 11/01/2023 10:1 1 AM CDT Result [facility] Historical Provider LAB BLOOD ORDERABLES Edit ed Result - Final Performing Organization Address City/[facility]/ZIP Co de Phone Number EXTERNAL LAB * Screening Mammogram Bilateral W [...] There has been no suspicious interval change. Self Screening Mammogram IMG MAMMO PROCEDURES Fi nal Result * Hepatitis C antibody (12/17/2019 8:52 AM CDT) Hep C Ab NONREACT NONREACTIVE [facility] Comment: Siemens CentaurXP using KARLA (chemiluminescent immunoassay) [...] LAB MICROBIOLOGY - GENERAL ORDERABLES Final Result [place] [id number] [place] [address], [facility] [phone] * Stool DNA - Cologuard (01/14/2019) Scribed Stool DNA - Cologuard Negative [facility] Stool 01/14/2019 us Historical Provider LAB BODY FLUIDS AND STOOL S ORDERABLES Final Result [facility] from Last 3 Months or Most Recently Relevant to Health Maintenance Insurance [facility] MEDICARE ADVANTAGE Advance Directives For more information, please contact: [phone] Documents on File Type Date Recorded 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 Expl 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 Power of Research Chemist 03/06/2024 2:05 PM Maxshira marks Durable [email or web address].pdf ADVANCE DIRECTIVE 03/06/2024 2:05 PM Maxshira marks Living [email or web address].pdf Power of Research Chemist 03/06/2024 2:02 PM [facility] [email or web address].pdf Power of Research Chemist 03/06/2024 2:00 PM Jeannine [facility] [email or web address].pdf Healthcare Agents on File Name Relationship Healthcare Agent Relationshi p Communication Jeannine Almodovar Daughter Health Care Agent Jeni Lal Daughter [facility] re Agent Care Teams Manager Asset Management Relationship Specialty Start Date End Date María Gusman MD PCP - General Family Medicine 06/29/19
[2024-12-30 12:04] LABS: Thyroid Stimulating Hormone 0.705 uIU/mL (0.465-4.680)
== END 2024-12-30 10:37 | disposition home or self-care (01) ==
LOC: CHSLAB 10:38
PROVIDERS: PCP Hospitalist; Visit Provider Nurse Practitioner Family
DX: E10.65 Type 1 diabetes mellitus with hyperglycemia (principal); E03.9 Hypothyroidism, unspecified
CPT/HCPCS: 36415; 82043; 83036; 84443